=== PATIENT | male | born 1960 | race Hispanic/Latino ===

== ENCOUNTER 2016-07-02 22:27 | Observation (INO) | payer MEDICARE, OTHER ==
[2016-07-02 22:35] VITALS: BMI 38.0
--- NOTE | 2016-07-02 23:10 | ED PDOC ---
Arrival/HPI - General Chief Complaint: Male Genitourinary Time Seen by Provider: 07/02/16 22:58 Historian: Patient - History of Present Illness Narrative History of Present Illness (Text): 07/02/16 23:08 This 56 yo male with pmh HTN, presents to this ED c/o right testicular pain x 2 days. Patent denies fever, sick contact, std exposure, trauma, sob, cp, or urinary symptoms. Time/Duration: Other (2 days) Context: Home Past Medical History - Provider Review Nursing Documentation Reviewed: Yes - Infectious Disease Hx of Infectious Diseases: None - Cardiac Hx Hypertension: Yes - Pulmonary Other/Comment: Smoker - Psychiatric Hx Substance Use: No - Surgical History Hx Orthopedic Surgery: Yes (knee surgery) - Anesthesia Hx Anesthesia: Yes Hx Anesthesia Reactions: No Hx Malignant Hyperthermia: No Family/Social History - Physician Review Nursing Documentation Reviewed: Yes Family/Social History: No Known Family HX Smoking Status: Heavy Smoker > 10 Cigarettes Daily Hx Alcohol Use: No Hx Substance Use: No Allergies/Home Meds Allergies/Adverse Reactions: Allergies No Known Allergies Allergy (Verified 07/02/16 22:35) Review of Systems - Review of Systems Constitutional: Normal. absent: Fatigue, Weight Change, Fevers Eyes: Normal ENT: Normal Respiratory: Cough. absent: SOB Cardiovascular: Normal Gastrointestinal: Normal Genitourinary Male: Other (Right testicular pain, swelling). absent: Dysuria, Frequency, Hematuria Musculoskeletal: Normal Skin: Normal Neurological: Normal Endocrine: Normal Hemo/Lymphatic: Normal Psychiatric: Normal Physical Exam Vital Signs Temp Pulse Resp BP Pulse Ox 07/03/16 03:20 16 126/86 93 L 07/03/16 02:10 102 H 18 173/108 H 96 07/03/16 00:46 109 H 22 167/105 H 94 L 07/02/16 22:39 97.9 F 104 H 178/105 H 93 L Temperature: Afebrile Blood Pressure: Hypertensive Pulse: Tachycardic Respiratory Rate: Normal Appearance: Positive for: Well-Appearing, Non-Toxic, Uncomfortable Pain Distress: Mild Mental Status: Positive for: Alert and Oriented X 3 - Systems Exam Head: Present: Atraumatic, Normocephalic Pupils: Present: PERRL Extroacular Muscles: Present: EOMI Conjunctiva: Present: Normal Mouth: Present: Moist Mucous Membranes Neck: Present: Normal Range of Motion Respiratory/Chest: Present: Clear to Auscultation, Good Air Exchange. No: Respiratory Distress, Accessory Muscle Use Cardiovascular: Present: Regular Rate and Rhythm, Normal S1, S2. No: Murmurs Abdomen: Present: Normal Bowel Sounds. No: Tenderness, Distention, Peritoneal Signs Genitourinary Male: Present: Circumcised Penis, Testicle Tenderness, Erythema, Testicle Swelling. No: Lesions, Penile Discharge, Penile Swelling, Masses Back: Present: Normal Inspection. No: CVA Tenderness Upper Extremity: Present: Normal Inspection, Normal ROM, NORMAL PULSES, Neurovascularly Intact, Capillary Refill < 2s. No: Cyanosis, Edema Lower Extremity: Present: Normal Inspection, NORMAL PULSES, Normal ROM. No: Edema, CALF TENDERNESS Neurological: Present: GCS=15, CN II-XII Intact, Speech Normal, Motor Func Grossly Intact, Normal Sensory Function, Normal Cerebellar Funct, Memory Normal Skin: Present: Warm, Dry, Normal Color. No: Rashes Psychiatric: Present: Alert, Oriented x 3, Normal Insight, Normal Concentration Medical Decision Making ED Course and Treatment: 07/03/16 02:[address] Stover regarding patient c/o right testicular pain. U/S dx. right epididymoorchitis. He agrees with plan for observation. Re-evaluation Time: 02:12 Reassessment Condition: Re-examined, Improving,but remains with symptoms - Lab Interpretations Microbiology Results: Microbiology Results 07/02/16 22:46 Blood Blood Culture - Final NO GROWTH AFTER 5 DAYS 07/02/16 22:46 Blood Gram Stain - Final TEST NOT PERFORMED 07/02/16 23:30 Blood S.aureus & Coag-Neg Staph PNA FISH - Final 07/02/16 23:30 Blood Blood Culture - Final Coagulase Neg Staphylococcus 07/02/16 23:30 Blood Gram Stain - Final 07/03/16 01:19 Urine Urine Culture - Final Escherichia Coli Lab Results: 07/02/16 22:46 07/02/16 22:46 Lab Results 07/03/16 01:19: Urine Color Yellow, Urine Appearance Clear, Urine pH 7.5, Ur Specific [place] 1.010, Urine Protein Negative, Urine Glucose (UA) Negative, Urine Ketones 15 H, Urine Blood Negative, Urine Nitrate Positive H, Urine Bilirubin Negative, Urine Urobilinogen 4.0 H, Ur Leukocyte Esterase Negative, Urine RBC 0 - 2, Urine WBC 0 - 2, Ur Epithelial Cells 1 - 3, Urine Bacteria Many 07/02/16 23:30: pO2 75 H, VBG pH 7.42, VBG pCO2 45.0, VBG HCO3 29.2 H, VBG Total CO2 30.6 H, VBG O2 Sat (Calc) 97.6 H, VBG Base Excess 4.0 H, VBG Potassium 3.3 L, Glucose 126 H, Lactate 0.9, FiO2 21.0, Sodium 136.0, Chloride 104.0, Venous Blood Potassium 3.3 L 07/02/16 22:46: Sodium 135, Potassium 3.1 L, Chloride 99, Carbon Dioxide 26, Anion Gap 13, BUN 11, Creatinine 0.7, Est GFR ( Amer) > 60, Est GFR (Non- Af Amer) > 60, Random Glucose 130 H, Calcium 8.9, Phosphorus 2.1 L, Magnesium 1.9, Total Bilirubin 1.7 H, AST 31, ALT 40, Alkaline Phosphatase 71, Total Protein 7.3, Albumin 4.3, Globulin 3.0, Albumin/Globulin Ratio 1.4 07/02/16 22:46: PT 12.0 H, INR 1.11 H, APTT 29.2 07/02/16 22:46: WBC 12.0 H, RBC 4.67, Hgb 14.7, Hct 42.5, MCV 91.0, MCH 31.5, MCHC 34.6, RDW 12.8, Plt Count 144, MPV 9.8, Gran % 84.5 H, Lymph % (Auto) 6.7 L , [place] % (Auto) 8.5 H, Eos % (Auto) 0.1 L, Baso % (Auto) 0.2, Gran # 10.15 H, Lymph # 0.8 L, [place] # 1.0 H, Eos # 0.0, Baso # 0.02 I have reviewed the lab results: Yes Interpretation: Abnormal lab values - RAD Interpretation Narrative RAD Interpretations (Text): 07/03/16 01:37 [facility] FINDINGS: Right testicle: Measures 4.0 x 3.2 x 2.6 cm. Appears hyperemic compared with the left testicle, and is mildly inhomogeneous in echogenicity. Findings are suspicious for mild right orchitis. Flow seen in the right testicle on color and Doppler imaging, with no evidence of torsion. Right epididymis: Body and tail appear mildly enlarged and inhomogeneous in echogenicity, and demonstrate hyperemia on color imaging. Findings are most likely due to right epididymitis. Head of the epididymis is normal in size, measuring 9 x 8 mm. Left testicle: Within normal limits in appearance. Measures 4.2 x 2.9 x 2.2 cm. Flow seen in the left testicle on color and Doppler imaging, with no evidence of torsion. Left epididymis: Within normal limits in appearance. Head measures 10 x 8 mm. Hydrocoele: Small to moderate right hydrocele is seen. This appears complex/ multiseptate. Small left hydrocele noted, which appear simple in nature. Other findings: Thickening of the right scrotal soft tissues, suspicious for cellulitis. IMPRESSION: Findings suspicious for right epididymoorchitis. Moderate right hydrocele, which appears complex/multiseptate. Cannot rule out a pyocele. Recommend clinical correlation. Findings which could be due to right scrotal cellulitis. Small left hydrocele. See above for remaining findings. No evidence of testicular torsion.. Thank you for allowing us to participate in the care of your patient. Dictated and Authenticated by: Sonia Morales MD 07/03/2016 12:18 AM Eastern Time ([place] & [place]) Radiology Orders: 07/02/16 TESTES DUPLEX COMPLETE [US] Stat 07/02/16 23:03 CHEST PORTABLE [RAD] Stat 07/02/16 23:07 ABD & PELVIS IV CONTRAST ONLY [CT] Stat - EKG Interpretation Interpreted by ED Physician: Yes (sinus tachycardia @ [address] chages. Normal interval.) Type: 12 lead EKG Comparison: No previous EKG avail. - Medication Orders Current Medication Orders: Discontinued Medications Docusate Sodium (Colace) 100 mg PO DAILY GARRETT Last Admin: 07/05/16 09:53 Dose: 100 mg Hydralazine HCl (Apresoline) 10 mg IVP Q6 PRN PRN Reason: Systolic Blood Pressure Last Admin: 07/04/16 17:04 Dose: 10 mg Hydromorphone HCl (Dilaudid) 0.5 mg IVP Q3H PRN PRN Reason: Pain, moderate (4-7) Hydromorphone HCl (Dilaudid) 1 mg IVP Q3H PRN PRN Reason: Pain, severe (8-10) Last Admin: 07/04/16 21:28 Dose: 1 mg Vancomycin HCl (Vancomycin 1gm) 1 gm in 250 mls @ 167 mls/hr IVPB STAT STA PRN Reason: Protocol Stop: 07/03/16 00:42 Last Admin: 07/03/16 00:29 Dose: 167 mls/hr Sodium Chloride (Sodium Chloride 0.9%) 500 mls @ 999 mls/hr IV .Q31M STA Stop: 07/02/16 23:43 Last Admin: 07/03/16 00:30 Dose: 999 mls/hr Piperacillin Sod/Tazobactam Sod (Zosyn 3.375 In Ns 100ml) 100 mls @ 200 mls/hr IVPB STAT STA PRN Reason: Protocol Stop: 07/03/16 02:29 Last Admin: 07/03/16 02:13 Dose: 200 mls/hr Doxycycline Hyclate 100 mg/ (Sodium Chloride) 100 mls @ 100 mls/hr IVPB Q12 GARRETT PRN Reason: Protocol Last Admin: 07/05/16 09:55 Dose: 100 mls/hr Ceftriaxone Sodium (Rocephin 1 Gram Ivpb) 1 gm in 100 mls @ 100 mls/hr IVPB DAILY GARRETT PRN Reason: Protocol Last Admin: 07/05/16 09:54 Dose: 100 mls/hr Ibuprofen (Motrin Tab) 600 mg PO Q6H [facility] Last Admin: 07/05/16 12:51 Dose: Not Given Non-Admin Reason: Patient Refused Iohexol (Omnipaque 350 100 Ml) Confirm Administered Dose 350 mg .ROUTE .STK-MED ONE Stop: 07/03/16 00:03 Metoprolol Tartrate (Lopressor) 25 mg PO DAILY [facility] Last Admin: 07/04/16 09:05 Dose: 25 mg Metoprolol Tartrate (Lopressor) 25 mg PO BID [facility] Last Admin: 07/05/16 17:13 Dose: 25 mg Morphine Sulfate (Morphine) 2 mg IVP STAT STA Stop: 07/02/16 23:14 Last Admin: 07/02/16 23:33 Dose: 2 mg Re-Assess: MATTI Pain Assessment Document 07/03/16 00:33 SS (Rec: 07/03/16 01:22 SS [id number]) Pain Reassessment Is this a pain reassessment? Yes Sleep Is patient sleeping during reassessment? Yes Morphine Sulfate (Morphine) 4 mg IVP STAT STA Stop: 07/03/16 02:51 Last Admin: 07/03/16 03:03 Dose: 4 mg Nicotine (Nicoderm Cq) 1 patch TD DAILY [facility] Last Admin: 07/05/16 09:54 Dose: 1 patch Ondansetron HCl (Zofran Inj) 4 mg IVP Q4H PRN PRN Reason: Nausea/Vomiting Pantoprazole Sodium (Protonix Inj) 40 mg IVP DAILY [facility] Last Admin: 07/03/16 09:19 Dose: 40 mg Pantoprazole Sodium (Protonix Ec Tab) 40 mg PO ACB [facility] Last Admin: 07/05/16 09:53 Dose: 40 mg Potassium Chloride (K-Dur 20 Meq Er Tab) 60 meq PO STAT STA Stop: 07/03/16 02:12 Last Admin: 07/03/16 02:30 Dose: 60 meq Potassium Chloride (K-Dur 20 Meq Er Tab) 40 meq PO ONCE ONE Stop: 07/05/16 08:00 Last Admin: 07/05/16 09:53 Dose: 40 meq Disposition/Present on Arrival - Present on Arrival Any Indicators Present on Arrival: No History of DVT/PE: No History of Uncontrolled Diabetes: No Urinary Catheter: No History of Decub. Ulcer: No History Surgical Site Infection Following: None - Disposition Have Diagnosis and Disposition been Completed?: Yes Diagnosis: Epididymoorchitis, Cellulitis of scrotum, Cough Disposition: HOSPITALIZED Disposition Time: 02:14 Patient Plan: Observation Condition: STABLE
[2016-07-02] MEDS ORDERED: Vancomycin 1gm in NS 250ml 1 GM/250 ML BAG IVPB STA (23:13)
[2016-07-02] MEDS ORDERED: Sodium Chloride 0.9% 500 ML IV STA (23:13)
[2016-07-02] MEDS ORDERED: Morphine 2 mg/ml ISec IVP STA (23:13)
[2016-07-02 23:27] LABS: ADD MANUAL DIFF? NO
[2016-07-02 23:31] LABS: BASO # 0.02 K/mm3 (0.0-2.0); BASO % 0.2 % (0.0-3.0); EOS % 0.1 % (1.5-5.0); GRAN # 10.15 (1.4-6.5); GRAN % 84.5 % (50.0-68.0); HEMATOCRIT 42.5 % (42.0-52.0); LYMPH # 0.8 (1.2-3.4); LYMPH % 6.7 % (22.0-35.0); MEAN CORPUSCULAR HEMOGLOBIN 31.5 pg (25.0-35.0); MEAN CORPUSCULAR HGB CONC 34.6 g/dl (31.0-37.0); MEAN PLATELET VOLUME 9.8 fl (7.0-11.0); MONO % 8.5 % (1.0-6.0); PLATELET COUNT 144 10^3/uL (120.0-450.0); RED CELL DISTRIBUTION WIDTH 12.8 % (11.5-14.5)
[2016-07-02 23:44] LABS: ALB/GLOB RATIO 1.4 (1.1-1.8); ALKALINE PHOSPHATASE 71 U/L (38-133); ALT/SGPT 40 U/L (7-56); AST/SGOT 31 U/L (15-59); BILIRUBIN,TOTAL 1.7 mg/dL (0.2-1.3); BLOOD UREA NITROGEN 11 mg/dL (7-21); CALCIUM 8.9 mg/dL (8.4-10.5); CARBON DIOXIDE 26 mmol/L (21-33); CHLORIDE 99 mmol/L (98-107); GFR AFRICAN-AMERICAN > 60; GLUCOSE,RANDOM 130 mg/dL (70-110); MAGNESIUM 1.9 mg/dL (1.7-2.2); PHOSPHOROUS 2.1 mg/dL (2.5-4.5); POTASSIUM 3.1 mmol/L (3.6-5.0); SODIUM 135 mmol/L (132-148); TOTAL PROTEIN 7.3 g/dL (5.8-8.3)
[2016-07-02 23:55] LABS: VENOUS BLOOD PH 7.42 (7.32-7.43)
[2016-07-03] MEDS ORDERED: Iohexol 350 MG/100 ML VIAL ONE (00:02)
[2016-07-03 00:05] LABS: INR 1.11 (0.93-1.08); PARTIAL THROMBOPLASTIN TIME 29.2 Seconds (23.7-30.8)
--- NOTE | 2016-07-03 00:18 | US ---
EXAM: US Scrotum CLINICAL HISTORY: 56 years old, male; Pain; Scrotum pain; Patient HX: Rt side swelling and pain; Additional info: Right testicular pain swelling TECHNIQUE: Real-time ultrasound of the scrotum with color Doppler and image documentation. EXAM DATE/TIME: 07/02/2016 11:06 PM COMPARISON: No relevant prior studies available. FINDINGS: Right testicle: Measures 4.0 x 3.2 x 2.6 cm. Appears hyperemic compared with the left testicle, and is mildly inhomogeneous in echogenicity. Findings are suspicious for mild right orchitis. Flow seen in the right testicle on color and Doppler imaging, with no evidence of torsion. Right epididymis: Body and tail appear mildly enlarged and inhomogeneous in echogenicity, and demonstrate hyperemia on color imaging. Findings are most likely due to right epididymitis. Head of the epididymis is normal in size, measuring 9 x 8 mm. Left testicle: Within normal limits in appearance. Measures 4.2 x 2.9 x 2.2 cm. Flow seen in the left testicle on color and Doppler imaging, with no evidence of torsion. Left epididymis: Within normal limits in appearance. Head measures 10 x 8 mm. Hydrocoele: Small to moderate right hydrocele is seen. This appears complex/multiseptate. Small left hydrocele noted, which appear simple in nature. Other findings: Thickening of the right scrotal soft tissues, suspicious for cellulitis. IMPRESSION: Findings suspicious for right epididymoorchitis. Moderate right hydrocele, which appears complex/multiseptate. Cannot rule out a pyocele. Recommend clinical correlation. Findings which could be due to right scrotal cellulitis. Small left hydrocele. See above for remaining findings. No evidence of testicular torsion..
[2016-07-03 01:33] LABS: PH,URINE 7.5 (4.7-8.0); URINE BILIRUBIN NEGATIVE (NEGATIVE); URINE BLOOD NEGATIVE (NEGATIVE); URINE GLUCOSE (UA) NEGATIVE (NEGATIVE); URINE KETONE 15 mg/dL (NEGATIVE); URINE LEUKOCYTE ESTERASE NEGATIVE Leu/uL (NEGATIVE); URINE PROTEIN NEGATIVE mg/dL (<30 mg/dL)
[2016-07-03 01:40] LABS: URINE APPEARANCE CLEAR (CLEAR); URINE COLOR YELLOW (YELLOW)
[2016-07-03] MEDS ORDERED: Piperacillin/Tazobact 3.375 gm 100 ML IVPB STA (02:00)
[2016-07-03] MEDS ORDERED: Potassium Chloride 20 mEq ER Tab PO STA (02:11)
[2016-07-03 02:40] LABS: URINE BACTERIA MANY (NEG); URINE RBC 0 - 2 /hpf (0-2); URINE WBC 0 - 2 /hpf (0-6)
[2016-07-03] MEDS ORDERED: Morphine 4 mg/ml ISec IVP STA (02:50)
[2016-07-03] MEDS ORDERED: HYDROmorphone 0.5 mg/0.5 ml ISec IVP PRN (03:18)
--- NOTE | 2016-07-03 03:30 | CP.PCM.HP ---
History of Present Illness - History of Present Illness History of Present Illness: 56 y/o M with PMH of HTN presents for a 3 day hx of right scrotal pain. Pt says the pain began gradually and began to get worse over the course of 3 days. Pt also mentions that during this time, the right side of his scrotum also became more erythematous and edematous. Pain is rated a 10/10 and is characterized as sharp and burning. Pt did not take any medication at home for his pain. Pt has never had a pain like this before. Pt does note pus-like discharge from his penis in addition to occasional blood noted in his urine. Pt denies any new sexual encounters or any hx of sexually transmitted diseases. Denies CP, SOB, N/ V/D, fevers, chills, headaches. PMH: HTN Surgical Hx: Right Knee surgery for torn ligament Family Hx: Cancer, unknown as to which type Social Hx: 1 ppd x 30 years, occasional alcohol use. Denies illicit drug use Allergies: NKDA Medication: Metoprolol Present on Admission - Present on Admission Any Indicators Present on Admission: No Review of Systems - Constitutional Constitutional: absent: Chills, Fatigue, Fever - EENT Eyes: absent: Blurred Vision, Change in Vision Nose/Mouth/Throat: absent: Nasal Congestion, Nasal Discharge - Cardiovascular Cardiovascular: absent: Chest Pain, Irregular Heart Rhythm - Respiratory Respiratory: absent: Cough, Dyspnea - Gastrointestinal Gastrointestinal: absent: Abdominal Pain, Diarrhea, Vomiting - Genitourinary Genitourinary: Dysuria, Hematuria - Reproductive: Male Reproductive:Male: Penile Discharge - Integumentary Integumentary: absent: New Lesions, Rash - Neurological Neurological: absent: Numbness, Syncope, Tingling - Hematologic/Lymphatic Hematologic: absent: Easy Bleeding, Easy Bruising Past Patient History - Infectious Disease Hx of Infectious Diseases: None - Past Social History Smoking Status: Heavy Smoker > 10 Cigarettes Daily - CARDIAC Hx Hypertension: Yes - PULMONARY Other/Comment: Smoker - PSYCHIATRIC Hx Substance Use: No - SURGICAL HISTORY Hx Orthopedic Surgery: Yes (knee surgery) - ANESTHESIA Hx Anesthesia: Yes Hx Anesthesia Reactions: No Hx Malignant Hyperthermia: No Meds Allergies/Adverse Reactions: Allergies Allergy/AdvReac Type Severity Reaction Status Date / Time No Known Allergies Allergy Verified 07/02/16 22:35 Physical Exam - Constitutional Appears: Non-toxic, No Acute Distress - Head Exam Head Exam: ATRAUMATIC, NORMAL INSPECTION, NORMOCEPHALIC - Eye Exam Eye Exam: EOMI, Normal appearance - ENT Exam ENT Exam: Mucous Membranes Moist, Normal Exam - Neck Exam Neck exam: Positive for: Normal Inspection. Negative for: Lymphadenopathy - Respiratory Exam Respiratory Exam: Clear to Auscultation Bilateral, NORMAL BREATHING PATTERN. absent: Rhonchi, Wheezes - Cardiovascular Exam Cardiovascular Exam: RRR, +S1, +S2 - GI/Abdominal Exam GI & Abdominal Exam: Normal Bowel Sounds, Soft. absent: Tenderness - Exam Exam: Scrotal Swelling, Testicular Tenderness (Right testicle tender to palpation). absent: Circumcision, Uretheral Discharge Additional comments: Scrotal edema and erythema present. Cremasteric reflex present b/l - Extremities Exam Extremities exam: Positive for: normal inspection. Negative for: calf tenderness, pedal edema - Neurological Exam Neurological exam: Alert, CN II-XII Intact, Oriented x3 - Psychiatric Exam Psychiatric exam: Normal Affect, Normal Mood - Skin Skin Exam: Intact, Warm Results - Vital Signs Recent Vital Signs: Last Vital Signs Temp 97.9 F 07/02/16 22:39 Pulse 102 H 07/03/16 02:10 Resp 16 07/03/16 03:20 BP 126/86 07/03/16 03:20 Pulse Ox 93 L 07/03/16 03:20 - Labs Result Diagrams: 07/02/16 22:46 07/02/16 22:46 Labs: Laboratory Results - last 24 hr 07/02/16 07/02/16 07/02/16 22:46 22:46 22:46 WBC 12.0 H RBC 4.67 Hgb 14.7 Hct 42.5 MCV 91.0 MCH 31.5 MCHC 34.6 RDW 12.8 Plt Count 144 MPV 9.8 Gran % 84.5 H Lymph % (Auto) 6.7 L [place] % (Auto) 8.5 H Eos % (Auto) 0.1 L Baso % (Auto) 0.2 Gran # 10.15 H Lymph # 0.8 L [place] # 1.0 H Eos # 0.0 Baso # 0.02 PT 12.0 H INR 1.11 H APTT 29.2 pO2 VBG pH VBG pCO2 VBG HCO3 VBG Total CO2 VBG O2 Sat (Calc) VBG Base Excess VBG Potassium Glucose Lactate FiO2 Sodium 135 Potassium 3.1 L Chloride 99 Carbon Dioxide 26 Anion Gap 13 BUN 11 Creatinine 0.7 Est GFR ( Amer) > 60 Est GFR (Non-Af Amer) > 60 Random Glucose 130 H Calcium 8.9 Phosphorus 2.1 L Magnesium 1.9 Total Bilirubin 1.7 H AST 31 ALT 40 Alkaline Phosphatase 71 Total Protein 7.3 Albumin 4.3 Globulin 3.0 Albumin/Globulin Ratio 1.4 Venous Blood Potassium Urine Color Urine Appearance Urine pH Ur Specific [place] Urine Protein Urine Glucose (UA) Urine Ketones Urine Blood Urine Nitrate Urine Bilirubin Urine Urobilinogen Ur Leukocyte Esterase Urine RBC Urine WBC Ur Epithelial Cells Urine Bacteria 07/02/16 07/03/16 23:30 01:19 WBC RBC Hgb Hct MCV MCH MCHC RDW Plt Count MPV Gran % Lymph % (Auto) [place] % (Auto) Eos % (Auto) Baso % (Auto) Gran # Lymph # [place] # Eos # Baso # PT INR APTT pO2 75 H VBG pH 7.42 VBG pCO2 45.0 VBG HCO3 29.2 H VBG Total CO2 30.6 H VBG O2 Sat (Calc) 97.6 H VBG Base Excess 4.0 H VBG Potassium 3.3 L Glucose 126 H Lactate 0.9 FiO2 21.0 Sodium 136.0 Potassium Chloride 104.0 Carbon Dioxide Anion Gap BUN Creatinine Est GFR ( Amer) Est GFR (Non-Af Amer) Random Glucose Calcium Phosphorus Magnesium Total Bilirubin AST ALT Alkaline Phosphatase Total Protein Albumin Globulin Albumin/Globulin Ratio Venous Blood Potassium 3.3 L Urine Color Yellow Urine Appearance Clear Urine pH 7.5 Ur Specific [place] 1.010 Urine Protein Negative Urine Glucose (UA) Negative Urine Ketones 15 H Urine Blood Negative Urine Nitrate Positive H Urine Bilirubin Negative Urine Urobilinogen 4.0 H Ur Leukocyte Esterase Negative Urine RBC 0 - 2 Urine WBC 0 - 2 Ur Epithelial Cells 1 - 3 Urine Bacteria Many Assessment & Plan - Assessment and Plan (Free Text) Plan: 56 y/o M with PMH of HTN presents with scrotal cellulitis and right epididymoorchitis. Pt received US which showed right epididymoorchitis with hydrocele along with scrotal cellulitis and no evidence of testicular torsion. Abdomen/pelvis CT scan pending. Pt will be started on abx and ID consulted. 1. Scrotal cellulitis and epididymoorchitis Levaquin and Doxycycline Check for GC/Chlamydia and RPR Dilaudid for pain control ID consulted, Dr. Cuevas 2. HTN Continue Lopressor 3. Tobacco abuse Cessation discussed Consider Nicotine patch 4. PPX Protonix Erendira SCD Seen, reviewed, and discussed with attending Koki, PGY-1
[2016-07-03] MEDS: HYDROmorphone 1 mg/ml ISec IVP PRN ×3 (04:12→20:46)
[2016-07-03 07:51] LABS: HEMATOCRIT 41.6 % (42.0-52.0); MEAN CELL VOLUME 89.5 fL (80.0-105.0); MEAN CORPUSCULAR HEMOGLOBIN 31.6 pg (25.0-35.0); MEAN CORPUSCULAR HGB CONC 35.3 g/dl (31.0-37.0); MEAN PLATELET VOLUME 9.6 fl (7.0-11.0); RED CELL DISTRIBUTION WIDTH 12.6 % (11.5-14.5); WHITE BLOOD COUNT 12.2 10^3/ul (4.5-11.0)
[2016-07-03 08:03] LABS: ALB/GLOB RATIO 1.3 (1.1-1.8); ALKALINE PHOSPHATASE 69 U/L (38-133); ALT/SGPT 43 U/L (7-56); AST/SGOT 30 U/L (15-59); BLOOD UREA NITROGEN 8 mg/dL (7-21); CALCIUM 8.8 mg/dL (8.4-10.5); CARBON DIOXIDE 29 mmol/L (21-33); CHLORIDE 101 mmol/L (98-107); GFR AFRICAN-AMERICAN > 60; GLUCOSE,RANDOM 114 mg/dL (70-110); POTASSIUM 3.6 mmol/L (3.6-5.0); SODIUM 137 mmol/L (132-148); TOTAL PROTEIN 6.9 g/dL (5.8-8.3)
[2016-07-03 08:07] VITALS: RESP 20
[2016-07-03] MEDS: cefTRIAXone 1 gm 1 GM/100 ML BAG IVPB SCH (09:16)
[2016-07-03] MEDS ORDERED: levoFLOXacin 750 mg in D5W 150 ML BAG IVPB SCH (10:00)
--- NOTE | 2016-07-03 10:58 | CT ---
PROCEDURE: CT Abdomen and Pelvis with contrast HISTORY: right testicualr pain/swelling r/o Talita gangre COMPARISON: None. TECHNIQUE: Contrast dose: 100 mL Omnipaque 350 Radiation dose: Total exam DLP = 1313.28 mGy-cm. This CT exam was performed using one or more of the following dose reduction techniques: Automated exposure control, adjustment of the mA and/or kV according to patient size, and/or use of iterative reconstruction technique. FINDINGS: Please note that examination is limited for evaluation of the stated diagnosis. Examination was not continued through the perineum and scrotum. LOWER THORAX: Minimal bilateral dependent atelectasis in lower lobes. LIVER: Normal size and contour. Diffuse diminished attenuation consistent with fatty infiltration. No mass. No biliary dilatation. GALLBLADDER AND BILE DUCTS: Unremarkable. PANCREAS: Unremarkable. No gross lesion or ductal dilatation. SPLEEN: Unremarkable. ADRENALS: Unremarkable. No mass. KIDNEYS AND URETERS: Unremarkable. No hydronephrosis. No solid mass. VASCULATURE: Unremarkable. No aortic aneurysm. BOWEL: Unremarkable. No obstruction. No gross mural thickening. APPENDIX: Normal appendix. PERITONEUM: Unremarkable. No free fluid. No free air. LYMPH NODES: Unremarkable. No enlarged lymph nodes. BLADDER: Unremarkable. REPRODUCTIVE: Normal prostate BONES: No acute fracture. OTHER FINDINGS: None. IMPRESSION: Fatty liver. Otherwise unremarkable examination. Note examination is limited due to the failure to continue scan through perineum and scrotum for evaluation of primary stated diagnosis. Preliminary interpretation of this examination was reported by [employer] at 3:20 a.m. on 07/03/2016. There is concurrence of this report with the preliminary interpretation.
--- NOTE | 2016-07-03 11:48 | CP.PCM.CON ---
History of Present Illness - History of Present Illness History of Present Illness: 56 year old male with PMH of HTN, S/P right knee surgery, obesity with BMI 38, came in complaining of pain and swelling of his right scrotum for past 3-4 days. He denies discharge from the area, denies specific trauma to the area. The patient denies being sexually active in the past 3 months, denies having history of sexually transmitted illness. He does complain of pus-like material coming from his penis on occasion, but no blood. He denies fever or chills, no nausea or vomiting, no chest pain, no SOB, no cough or rhinorrhea, no headache or dizziness, no diarrhea. In the ED, ultrasound shows probable epidydimo- orchitis on the right. Infectious diseases consult is requested to further evaluate and manage. Review of Systems - Review of Systems All systems: reviewed and no additional remarkable complaints except (as per HPI ) Past Patient History - Infectious Disease Hx of Infectious Diseases: None - Past Social History Smoking Status: Heavy Smoker > 10 Cigarettes Daily - CARDIAC Hx Hypertension: Yes - PULMONARY Other/Comment: Smoker - MUSCULOSKELETAL/RHEUMATOLOGICAL Hx Falls: No - PSYCHIATRIC Hx Substance Use: No - SURGICAL HISTORY Hx Orthopedic Surgery: Yes (knee surgery) - ANESTHESIA Hx Anesthesia: Yes Hx Anesthesia Reactions: No Hx Malignant Hyperthermia: No Meds Allergies/Adverse Reactions: Allergies Allergy/AdvReac Type Severity Reaction Status Date / Time No Known Allergies Allergy Verified 07/02/16 22:35 - Medications Medications: Current Medications Docusate Sodium (Colace) 100 mg PO DAILY [facility] Hydromorphone HCl (Dilaudid) 0.5 mg IVP Q3H PRN PRN Reason: Pain, moderate (4-7) Hydromorphone HCl (Dilaudid) 1 mg IVP Q3H PRN PRN Reason: Pain, severe (8-10) Last Admin: 07/03/16 04:12 Dose: 1 mg Doxycycline Hyclate 100 mg/ (Sodium Chloride) 100 mls @ 100 mls/hr IVPB Q12 [facility] PRN Reason: Protocol Levofloxacin/Dextrose (Levaquin 750mg) 750 mg IVPB DAILY [facility] Metoprolol Tartrate (Lopressor) 25 mg PO DAILY [facility] Nicotine (Nicoderm Cq) 1 patch TD DAILY [facility] Ondansetron HCl (Zofran Inj) 4 mg IVP Q4H PRN PRN Reason: Nausea/Vomiting Pantoprazole Sodium (Protonix Inj) 40 mg IVP DAILY [facility] Physical Exam - Constitutional Appears: Non-toxic, No Acute Distress - Head Exam Head Exam: NORMAL INSPECTION - ENT Exam ENT Exam: Mucous Membranes Moist - Neck Exam Neck exam: Negative for: Lymphadenopathy, Meningismus - Respiratory Exam Respiratory Exam: Decreased Breath Sounds - Cardiovascular Exam Cardiovascular Exam: +S1, +S2 - GI/Abdominal Exam GI & Abdominal Exam: Soft. absent: Tenderness - Exam Exam: Scrotal Swelling (right), Testicular Tenderness (right) Results - Vital Signs Recent Vital Signs: Last Vital Signs Temp 99 F 07/03/16 08:06 Pulse 95 H 07/03/16 08:06 Resp 20 07/03/16 08:06 BP 137/78 07/03/16 08:06 Pulse Ox 94 L 07/03/16 08:06 - Labs Result Diagrams: 07/03/16 07:45 07/03/16 07:45 Labs: Laboratory Results - last 24 hr 07/03/16 07/03/16 07:45 07:45 WBC 12.2 H RBC 4.65 Hgb 14.7 Hct 41.6 L MCV 89.5 MCH 31.6 MCHC 35.3 RDW 12.6 Plt Count 145 MPV 9.6 Sodium 137 Potassium 3.6 Chloride 101 Carbon Dioxide 29 Anion Gap 11 BUN 8 Creatinine 0.6 Est GFR ( Amer) > 60 Est GFR (Non-Af Amer) > 60 Random Glucose 114 H Calcium 8.8 Total Bilirubin 2.0 H AST 30 ALT 43 Alkaline Phosphatase 69 Total Protein 6.9 Albumin 3.9 Globulin 3.0 Albumin/Globulin Ratio 1.3 Assessment & Plan - Assessment and Plan (Free Text) Plan: Assessment Sepsis due to right epididymo-orchitis R/O sexually transmitted illness HTN S/P right knee surgery obesity with BMI 38 Plan Started patient on Rocephin and Doxycycline pending blood cx, penile discharge/ urine cx, urine NAAT for gonorrhea and chlamydia will follow up Urology evaluation Will monitor clinically
--- NOTE | 2016-07-03 12:56 | CARD ---
APPROVED REPORT EKG Measurement Heart [id number] <Conclusion> Sinus tachycardia Otherwise normal ECG
--- NOTE | 2016-07-03 14:33 | RAD ---
HISTORY: Sepsis Patient COMPARISON: No prior. FINDINGS: LUNGS: No active pulmonary disease. PLEURA: No significant pleural effusion identified, no pneumothorax apparent. CARDIOVASCULAR: Normal. OSSEOUS STRUCTURES: No significant abnormalities. VISUALIZED UPPER ABDOMEN: Normal. OTHER FINDINGS: None. IMPRESSION: No active disease.
[2016-07-04] MEDS: HYDROmorphone 1 mg/ml ISec IVP PRN ×4 (01:34→21:28)
--- NOTE | 2016-07-04 06:12 | PCM.URO ---
Urology Progress Note - Objective Lab Results Last 24 Hours: Laboratory Results - last 24 hr 07/03/16 07/03/16 07/03/16 07:45 07:45 07:45 WBC 12.2 H RBC 4.65 Hgb 14.7 Hct 41.6 L MCV 89.5 MCH 31.6 MCHC 35.3 RDW 12.6 Plt Count 145 MPV 9.6 Sodium 137 Potassium 3.6 Chloride 101 Carbon Dioxide 29 Anion Gap 11 BUN 8 Creatinine 0.6 Est GFR ( Amer) > 60 Est GFR (Non-Af Amer) > 60 Random Glucose 114 H Calcium 8.8 Total Bilirubin 2.0 H AST 30 ALT 43 Alkaline Phosphatase 69 Total Protein 6.9 Albumin 3.9 Globulin 3.0 Albumin/Globulin Ratio 1.3 RPR Nonreactive Intake & Output: Intake & Output 07/03/16 07/03/16 07/04/16 06:59 18:59 06:59 Intake Total 960 Balance 960 Intake: Oral 960 Other: Voiding Method Urinal # Bowel Movements 1 Vital Signs: Vital Signs - 24 hr 07/03/16 07/03/16 07/03/16 08:06 09:18 17:08 Temperature 99 F 99 F Pulse Rate 95 H 94 H Respiratory 20 20 Rate Blood Pressure 137/78 137/78 154/98 H O2 Sat by Pulse 94 L 98 Oximetry
[2016-07-04 07:14] LABS: HEMATOCRIT 43.9 % (42.0-52.0); MEAN CELL VOLUME 87.8 fL (80.0-105.0); MEAN CORPUSCULAR HEMOGLOBIN 31.8 pg (25.0-35.0); MEAN CORPUSCULAR HGB CONC 36.2 g/dl (31.0-37.0); MEAN PLATELET VOLUME 9.7 fl (7.0-11.0); RED CELL DISTRIBUTION WIDTH 12.5 % (11.5-14.5); WHITE BLOOD COUNT 11.9 10^3/ul (4.5-11.0)
[2016-07-04 07:26] LABS: ALB/GLOB RATIO 1.2 (1.1-1.8); ALKALINE PHOSPHATASE 75 U/L (38-133); ALT/SGPT 39 U/L (7-56); AST/SGOT 25 U/L (15-59); BILIRUBIN,TOTAL 1.1 mg/dL (0.2-1.3); BLOOD UREA NITROGEN 12 mg/dL (7-21); CALCIUM 9.2 mg/dL (8.4-10.5); CARBON DIOXIDE 26 mmol/L (21-33); CHLORIDE 103 mmol/L (98-107); GFR AFRICAN-AMERICAN > 60; GLUCOSE,RANDOM 110 mg/dL (70-110); POTASSIUM 3.6 mmol/L (3.6-5.0); SODIUM 140 mmol/L (132-148); TOTAL PROTEIN 7.1 g/dL (5.8-8.3)
[2016-07-04] MEDS: Pantoprazole 40 mg EC Tab PO SCH (08:17)
[2016-07-04] MEDS: cefTRIAXone 1 gm 1 GM/100 ML BAG IVPB SCH (09:06)
--- NOTE | 2016-07-04 13:48 | CP.PCM.PN ---
<EdelmiraLuis jacinto - Last Filed: 07/04/16 13:44> Subjective - Date & Time of Evaluation Date of Evaluation: 07/04/16 Time of Evaluation: 09:30 - Subjective Subjective: Medicine Progress note. Dr. Bryant Pt seen and examined at bedside. No acute events overnight. Patient states that he was evaluated by Urology who wanted the patient to keep the scrotum elevated with a rolled towel. States mild improvement in scrotal swelling. Still with pain. No N/V/D. No Abd pain. No F/C. No CP/SOB. no new complaints. Objective - Vital Signs/Intake and Output Vital Signs (last 24 hours): Temp Pulse Resp BP Pulse Ox 98.2 F 85 20 161/97 H 92 L 07/04/16 08:25 07/04/16 08:25 07/04/16 08:25 07/04/16 09:05 07/04/16 08:25 - Medications Medications: Current Medications Docusate Sodium (Colace) 100 mg PO DAILY [facility] Last Admin: 07/04/16 09:05 Dose: 100 mg Hydromorphone HCl (Dilaudid) 0.5 mg IVP Q3H PRN PRN Reason: Pain, moderate (4-7) Hydromorphone HCl (Dilaudid) 1 mg IVP Q3H PRN PRN Reason: Pain, severe (8-10) Last Admin: 07/04/16 09:06 Dose: 1 mg Doxycycline Hyclate 100 mg/ (Sodium Chloride) 100 mls @ 100 mls/hr IVPB Q12 [facility] PRN Reason: Protocol Last Admin: 07/04/16 10:11 Dose: 100 mls/hr Ceftriaxone Sodium (Rocephin 1 Gram Ivpb) 1 gm in 100 mls @ 100 mls/hr IVPB DAILY [facility] PRN Reason: Protocol Last Admin: 07/04/16 09:06 Dose: 100 mls/hr Ibuprofen (Motrin Tab) 600 mg PO Q6H [facility] Last Admin: 07/04/16 12:15 Dose: 600 mg Metoprolol Tartrate (Lopressor) 25 mg PO DAILY [facility] Last Admin: 07/04/16 09:05 Dose: 25 mg Nicotine (Nicoderm Cq) 1 patch TD DAILY [facility] Last Admin: 07/04/16 09:05 Dose: 1 patch Ondansetron HCl (Zofran Inj) 4 mg IVP Q4H PRN PRN Reason: Nausea/Vomiting Pantoprazole Sodium (Protonix Ec Tab) 40 mg PO ACB [facility] Last Admin: 07/04/16 08:17 Dose: 40 mg - Labs Labs: 07/04/16 07:00 07/04/16 07:00 PT 12.0 Seconds (9.9-11.8) H 07/02/16 22:46 INR 1.11 (0.93-1.08) H 07/02/16 22:46 APTT 29.2 Seconds (23.7-30.8) 07/02/16 22:46 - Constitutional Appears: Well, No Acute Distress - Head Exam Head Exam: ATRAUMATIC, NORMAL INSPECTION, NORMOCEPHALIC - Eye Exam Eye Exam: EOMI, Normal appearance, PERRL. absent: Scleral icterus - ENT Exam ENT Exam: Mucous Membranes Moist - Neck Exam Neck Exam: Full ROM - Respiratory Exam Respiratory Exam: Clear to Ausculation Bilateral, NORMAL BREATHING PATTERN. absent: Chest Wall Tenderness, Decreased Breath Sounds, Rales, Wheezes, Respiratory Distress - Cardiovascular Exam Cardiovascular Exam: RRR, +S1, +S2. absent: JVD - GI/Abdominal Exam GI & Abdominal Exam: Soft, Normal Bowel Sounds. absent: Firm, Guarding, Rigid, Tenderness, Mass, Rebound - Exam Additional comments: scrotal swelling. erythema. Tender to palpation. No discharge. No induration - Extremities Exam Extremities Exam: Normal Inspection - Neurological Exam Neurological Exam: Alert, Awake, Normal Gait - Psychiatric Exam Psychiatric exam: Normal Affect, Normal Mood - Skin Skin Exam: Dry, Intact Assessment and Plan - Assessment and Plan (Free Text) Assessment: 56yo M with PMHx of HTN here for evaluation of scrotal swelling 1. Epididymo-orchitis Afebrile mild improvement in leukocytosis Doxycycline Rocephin Urine Cx - gram negative moises Blood Cx - Gram Pos cocci in clusters in one of two sets Scrotal elevation Urology consulted, Dr. Oliveira, appreciate recs Motrin 600mg PO prn ID consulted, Dr. Gabriel, appreciate recs 2. hx of HTN Metoprolol 25mg PO Daily continue to monitor 3. Tobacco abuse cessation counseling Nicotine patch 4. PPx Protonix SCDs Discussed case with Dr. Annette Hickey PGY1 <Tunde Bryant MD - Last Filed: 07/04/16 14:42> Objective - Vital Signs/Intake and Output Vital Signs (last 24 hours): Temp Pulse Resp BP Pulse Ox 98.2 F 85 20 161/97 H 92 L 07/04/16 08:25 07/04/16 08:25 07/04/16 08:25 07/04/16 09:05 07/04/16 08:25 - Medications Medications: Current Medications Docusate Sodium (Colace) 100 mg PO DAILY [facility] Last Admin: 07/04/16 09:05 Dose: 100 mg Hydromorphone HCl (Dilaudid) 0.5 mg IVP Q3H PRN PRN Reason: Pain, moderate (4-7) Hydromorphone HCl (Dilaudid) 1 mg IVP Q3H PRN PRN Reason: Pain, severe (8-10) Last Admin: 07/04/16 09:06 Dose: 1 mg Doxycycline Hyclate 100 mg/ (Sodium Chloride) 100 mls @ 100 mls/hr IVPB Q12 [facility] PRN Reason: Protocol Last Admin: 07/04/16 10:11 Dose: 100 mls/hr Ceftriaxone Sodium (Rocephin 1 Gram Ivpb) 1 gm in 100 mls @ 100 mls/hr IVPB DAILY [facility] PRN Reason: Protocol Last Admin: 07/04/16 09:06 Dose: 100 mls/hr Ibuprofen (Motrin Tab) 600 mg PO Q6H [facility] Last Admin: 07/04/16 12:15 Dose: 600 mg Metoprolol Tartrate (Lopressor) 25 mg PO DAILY [facility] Last Admin: 07/04/16 09:05 Dose: 25 mg Nicotine (Nicoderm Cq) 1 patch TD DAILY [facility] Last Admin: 07/04/16 09:05 Dose: 1 patch Ondansetron HCl (Zofran Inj) 4 mg IVP Q4H PRN PRN Reason: Nausea/Vomiting Pantoprazole Sodium (Protonix Ec Tab) 40 mg PO ACB [facility] Last Admin: 07/04/16 08:17 Dose: 40 mg - Labs Labs: 07/04/16 07:00 07/04/16 07:00 PT 12.0 Seconds (9.9-11.8) H 07/02/16 22:46 INR 1.11 (0.93-1.08) H 07/02/16 22:46 APTT 29.2 Seconds (23.7-30.8) 07/02/16 22:46 Attending/Attestation - Attestation I have personally seen and examined this patient.: Yes I have fully participated in the care of the patient.: Yes I have reviewed all pertinent clinical information, including history, physical exam and plan: Yes Notes (Text): 07/04/16 14:40 Patient was seen and examined with medical assistant secretary .Agreed with resident assessment and plan. 56 year old male with PMH of HTN, S/P right knee surgery, obesity with BMI 38, was admitted with pain and swelling of his right scrotum, has right edpidydmitis/Orchitis on Rocephin and Doxycycline as per ID.Urine culture are growing gram negative moises.One blood cultures bottle is growing gram positive cocci in cluster, repeat blood cultures has been drawn, we will follow up cultures. ordered, Management plan was discussed in detail with patient Education was provided.
[2016-07-04 16:32] VITALS: O2SAT 96
--- NOTE | 2016-07-04 19:28 | CP.PCM.PN ---
Subjective - Date & Time of Evaluation Date of Evaluation: 07/04/16 Time of Evaluation: 13:05 - Subjective Subjective: Feeling better, less pain in the scrotal area, no penile discharge, no fevers overnight. Objective - Vital Signs/Intake and Output Vital Signs (last 24 hours): Temp Pulse Resp BP Pulse Ox 98 F 76 20 142/78 96 07/04/16 16:31 07/04/16 16:31 07/04/16 16:31 07/04/16 18:00 07/04/16 16:31 Intake and Output: 07/04/16 07/05/16 18:59 06:59 Intake Total 600 Balance 600 - Medications Medications: Current Medications Docusate Sodium (Colace) 100 mg PO DAILY [facility] Last Admin: 07/04/16 09:05 Dose: 100 mg Hydralazine HCl (Apresoline) 10 mg IVP Q6 PRN PRN Reason: Systolic Blood Pressure Last Admin: 07/04/16 17:04 Dose: 10 mg Hydromorphone HCl (Dilaudid) 0.5 mg IVP Q3H PRN PRN Reason: Pain, moderate (4-7) Hydromorphone HCl (Dilaudid) 1 mg IVP Q3H PRN PRN Reason: Pain, severe (8-10) Last Admin: 07/04/16 17:15 Dose: 1 mg Doxycycline Hyclate 100 mg/ (Sodium Chloride) 100 mls @ 100 mls/hr IVPB Q12 [facility] PRN Reason: Protocol Last Admin: 07/04/16 10:11 Dose: 100 mls/hr Ceftriaxone Sodium (Rocephin 1 Gram Ivpb) 1 gm in 100 mls @ 100 mls/hr IVPB DAILY [facility] PRN Reason: Protocol Last Admin: 07/04/16 09:06 Dose: 100 mls/hr Ibuprofen (Motrin Tab) 600 mg PO Q6H [facility] Last Admin: 07/04/16 18:19 Dose: 600 mg Metoprolol Tartrate (Lopressor) 25 mg PO BID [facility] Nicotine (Nicoderm Cq) 1 patch TD DAILY [facility] Last Admin: 07/04/16 09:05 Dose: 1 patch Ondansetron HCl (Zofran Inj) 4 mg IVP Q4H PRN PRN Reason: Nausea/Vomiting Pantoprazole Sodium (Protonix Ec Tab) 40 mg PO ACB [facility] Last Admin: 07/04/16 08:17 Dose: 40 mg - Labs Labs: 07/04/16 07:00 07/04/16 07:00 PT 12.0 Seconds (9.9-11.8) H 07/02/16 22:46 INR 1.11 (0.93-1.08) H 07/02/16 22:46 APTT 29.2 Seconds (23.7-30.8) 07/02/16 22:46 - Constitutional Appears: Non-toxic, No Acute Distress - Head Exam Head Exam: NORMAL INSPECTION - ENT Exam ENT Exam: Mucous Membranes Moist - Neck Exam Neck Exam: absent: Lymphadenopathy, Meningismus - Respiratory Exam Respiratory Exam: Decreased Breath Sounds - Cardiovascular Exam Cardiovascular Exam: +S1, +S2 - GI/Abdominal Exam GI & Abdominal Exam: Soft. absent: Tenderness - Exam Exam: Scrotal Swelling (right side decreased, less tenderness, no discharge) Assessment and Plan - Assessment and Plan (Free Text) Plan: Assessment Sepsis due to right epididymo-orchitis R/O sexually transmitted illness, slowly improving clinically coagulase negative staph in one blood cx bottle, R/O contamination HTN S/P right knee surgery obesity with BMI 38 Plan continue Rocephin and Doxycycline pending blood cx, penile discharge/urine cx, urine NAAT for gonorrhea and chlamydia follow up repeat blood cx done today Will continue to monitor clinically
[2016-07-05 07:30] LABS: ADD MANUAL DIFF? NO
[2016-07-05 07:35] LABS: BASO # 0.02 K/mm3 (0.0-2.0); BASO % 0.2 % (0.0-3.0); EOS % 0.5 % (1.5-5.0); GRAN # 6.33 (1.4-6.5); GRAN % 78.1 % (50.0-68.0); HEMATOCRIT 45.2 % (42.0-52.0); LYMPH # 1.1 (1.2-3.4); LYMPH % 13.5 % (22.0-35.0); MEAN CELL VOLUME 88.3 fL (80.0-105.0); MEAN CORPUSCULAR HGB CONC 36.3 g/dl (31.0-37.0); MEAN PLATELET VOLUME 9.8 fl (7.0-11.0); MONO # 0.6 (0.1-0.6); MONO % 7.7 % (1.0-6.0); PLATELET COUNT 180 10^3/uL (120.0-450.0); RED CELL DISTRIBUTION WIDTH 12.6 % (11.5-14.5); WHITE BLOOD COUNT 8.1 10^3/ul (4.5-11.0)
[2016-07-05 07:49] LABS: BLOOD UREA NITROGEN 17 mg/dL (7-21); CALCIUM 9.2 mg/dL (8.4-10.5); CARBON DIOXIDE 26 mmol/L (21-33); CHLORIDE 104 mmol/L (95-110); GFR AFRICAN-AMERICAN > 60; GLUCOSE,RANDOM 103 mg/dL (70-110); POTASSIUM 3.2 mmol/L (3.6-5.0); SODIUM 141 mmol/L (132-148)
[2016-07-05] MEDS ORDERED: Potassium Chloride 20 mEq ER Tab PO ONE (07:59)
[2016-07-05 08:45] VITALS: PULSE 72; TEMP 98.8
[2016-07-05] MEDS: Pantoprazole 40 mg EC Tab PO SCH (09:53)
[2016-07-05] MEDS: cefTRIAXone 1 gm 1 GM/100 ML BAG IVPB SCH (09:54)
--- NOTE | 2016-07-05 15:03 | CP.PCM.PN ---
Subjective - Date & Time of Evaluation Date of Evaluation: 07/05/16 Time of Evaluation: 11:40 - Subjective Subjective: Comfortable in bed, less pain in the right scrotum, no fevers, no nausea or diarrhea, no penile discharge. Objective - Vital Signs/Intake and Output Vital Signs (last 24 hours): Temp Pulse Resp BP Pulse Ox 98.8 F 72 20 148/67 96 07/05/16 08:42 07/05/16 08:42 07/05/16 08:42 07/05/16 09:53 07/05/16 08:42 Intake and Output: 07/05/16 07/05/16 06:59 18:59 Output Total 540 Balance -540 - Medications Medications: Current Medications Docusate Sodium (Colace) 100 mg PO DAILY [facility] Last Admin: 07/05/16 09:53 Dose: 100 mg Hydralazine HCl (Apresoline) 10 mg IVP Q6 PRN PRN Reason: Systolic Blood Pressure Last Admin: 07/04/16 17:04 Dose: 10 mg Hydromorphone HCl (Dilaudid) 0.5 mg IVP Q3H PRN PRN Reason: Pain, moderate (4-7) Hydromorphone HCl (Dilaudid) 1 mg IVP Q3H PRN PRN Reason: Pain, severe (8-10) Last Admin: 07/04/16 21:28 Dose: 1 mg Doxycycline Hyclate 100 mg/ (Sodium Chloride) 100 mls @ 100 mls/hr IVPB Q12 [facility] PRN Reason: Protocol Last Admin: 07/05/16 09:55 Dose: 100 mls/hr Ceftriaxone Sodium (Rocephin 1 Gram Ivpb) 1 gm in 100 mls @ 100 mls/hr IVPB DAILY [facility] PRN Reason: Protocol Last Admin: 07/05/16 09:54 Dose: 100 mls/hr Ibuprofen (Motrin Tab) 600 mg PO Q6H [facility] Last Admin: 07/05/16 06:00 Dose: 600 mg Metoprolol Tartrate (Lopressor) 25 mg PO BID [facility] Last Admin: 07/05/16 09:53 Dose: 25 mg Nicotine (Nicoderm Cq) 1 patch TD DAILY [facility] Last Admin: 07/05/16 09:54 Dose: 1 patch Ondansetron HCl (Zofran Inj) 4 mg IVP Q4H PRN PRN Reason: Nausea/Vomiting Pantoprazole Sodium (Protonix Ec Tab) 40 mg PO ACB [facility] Last Admin: 07/05/16 09:53 Dose: 40 mg - Labs Labs: 07/05/16 07:00 07/05/16 07:00 PT 12.0 Seconds (9.9-11.8) H 07/02/16 22:46 INR 1.11 (0.93-1.08) H 07/02/16 22:46 APTT 29.2 Seconds (23.7-30.8) 07/02/16 22:46 - Constitutional Appears: Non-toxic, No Acute Distress - Head Exam Head Exam: NORMAL INSPECTION - ENT Exam ENT Exam: Mucous Membranes Moist - Neck Exam Neck Exam: absent: Lymphadenopathy, Meningismus - Respiratory Exam Respiratory Exam: Decreased Breath Sounds - Cardiovascular Exam Cardiovascular Exam: +S1, +S2 - GI/Abdominal Exam GI & Abdominal Exam: Soft. absent: Tenderness - Exam Exam: Scrotal Swelling (on the right decreased, less tenderness as well) Assessment and Plan - Assessment and Plan (Free Text) Plan: Assessment Sepsis due to right epididymo-orchitis R/O sexually transmitted illness, improving clinically, growing E. coli from the urine coagulase negative staph in one blood cx bottle, most likely contamination HTN S/P right knee surgery obesity with BMI 38 Plan on Rocephin and Doxycycline day 3; follow up urine NAAT for gonorrhea and chlamydia; patient can complete 7 days of Augmentin and complete the 7 day course of Doxycycline on discharge repeat blood cx done yesterday are negative
[2016-07-05 17:14] VITALS: BP 163/93
--- NOTE | 2016-07-06 08:57 | CP.PCM.DIS ---
<Luis Hickey - Last Filed: 07/06/16 17:24> Provider - Provider Date of Admission: 07/03/16 02:09 Attending physician: Denita Burgess MD Consults: ID: Faith Urology: Roxanne Time Spent in preparation of Discharge (in minutes): 45 Hospital Course - Lab Results Lab Results: Micro Results 07/04/16 13:00 Blood Blood Culture - Preliminary NO GROWTH AFTER 24 HOURS 07/04/16 12:40 Blood Blood Culture - Preliminary NO GROWTH AFTER 24 HOURS Most Recent Lab Values WBC 8.1 10^3/ul (4.5-11.0) D 07/05/16 07:00 RBC 5.12 10^6/uL (3.5-6.1) 07/05/16 07:00 Hgb 16.4 gm/dL (14.0-18.0) 07/05/16 07:00 Hct 45.2 % (42.0-52.0) 07/05/16 07:00 MCV 88.3 fL (80.0-105.0) 07/05/16 07:00 MCH 32.0 pg (25.0-35.0) 07/05/16 07:00 MCHC 36.3 g/dl (31.0-37.0) 07/05/16 07:00 RDW 12.6 % (11.5-14.5) 07/05/16 07:00 Plt Count 180 10^3/uL (120.0-450.0) 07/05/16 07:00 MPV 9.8 fl (7.0-11.0) 07/05/16 07:00 Gran % 78.1 % (50.0-68.0) H 07/05/16 07:00 Lymph % (Auto) 13.5 % (22.0-35.0) L 07/05/16 07:00 [place] % (Auto) 7.7 % (1.0-6.0) H 07/05/16 07:00 Eos % (Auto) 0.5 % (1.5-5.0) L 07/05/16 07:00 Baso % (Auto) 0.2 % (0.0-3.0) 07/05/16 07:00 Gran # 6.33 (1.4-6.5) 07/05/16 07:00 Lymph # 1.1 (1.2-3.4) L 07/05/16 07:00 [place] # 0.6 (0.1-0.6) 07/05/16 07:00 Eos # 0.0 (0.0-0.7) 07/05/16 07:00 Baso # 0.02 K/mm3 (0.0-2.0) 07/05/16 07:00 PT 12.0 Seconds (9.9-11.8) H 07/02/16 22:46 INR 1.11 (0.93-1.08) H 07/02/16 22:46 APTT 29.2 Seconds (23.7-30.8) 07/02/16 22:46 pO2 75 mm/Hg (30-55) H 07/02/16 23:30 VBG pH 7.42 (7.32-7.43) 07/02/16 23:30 VBG pCO2 45.0 (40-60) 07/02/16 23:30 VBG HCO3 29.2 mmol/l (21-28) H 07/02/16 23:30 VBG Total CO2 30.6 mmol.L (22-28) H 07/02/16 23:30 VBG O2 Sat (Calc) 97.6 % (40-65) H 07/02/16 23:30 VBG Base Excess 4.0 mmol/L (0.0-2.0) H 07/02/16 23:30 VBG Potassium 3.3 mmol/L (3.6-5.2) L 07/02/16 23:30 Sodium 136.0 mmol/L (132-148) 07/02/16 23:30 Chloride 104.0 mmol/L (98-107) 07/02/16 23:30 Glucose 126 mg/dl (75-110) H 07/02/16 23:30 Lactate 0.9 mmol/L (0.7-2.1) 07/02/16 23:30 FiO2 21.0 % 07/02/16 23:30 Sodium 141 mmol/L (132-148) 07/05/16 07:00 Potassium 3.2 mmol/L (3.6-5.0) L 07/05/16 07:00 Chloride 104 mmol/L (95-110) 07/05/16 07:00 Carbon Dioxide 26 mmol/L (21-33) 07/05/16 07:00 Anion Gap 14 (10-20) 07/05/16 07:00 BUN 17 mg/dL (7-21) 07/05/16 07:00 Creatinine 0.6 mg/dL (0.5-1.4) 07/05/16 07:00 Est GFR ( Amer) > 60 07/05/16 07:00 Est GFR (Non-Af Amer) > 60 07/05/16 07:00 Random Glucose 103 mg/dL (70-110) 07/05/16 07:00 Calcium 9.2 mg/dL (8.4-10.5) 07/05/16 07:00 Phosphorus 2.1 mg/dL (2.5-4.5) L 07/02/16 22:46 Magnesium 1.9 mg/dL (1.7-2.2) 07/02/16 22:46 Total Bilirubin 1.1 mg/dL (0.2-1.3) 07/04/16 07:00 AST 25 U/L (15-59) 07/04/16 07:00 ALT 39 U/L (7-56) 07/04/16 07:00 Alkaline Phosphatase 75 U/L (38-133) 07/04/16 07:00 Total Protein 7.1 g/dL (5.8-8.3) 07/04/16 07:00 Albumin 3.9 g/dL (3.0-4.8) 07/04/16 07:00 Globulin 3.2 gm/dL 07/04/16 07:00 Albumin/Globulin Ratio 1.2 (1.1-1.8) 07/04/16 07:00 Venous Blood Potassium 3.3 mmol/L (3.6-5.2) L 07/02/16 23:30 Urine Color Yellow (YELLOW) 07/03/16 01:19 Urine Appearance Clear (CLEAR) 07/03/16 01:19 Urine pH 7.5 (4.7-8.0) 07/03/16 01:19 Ur Specific [place] 1.010 (1.005-1.035) 07/03/16 01:19 Urine Protein Negative mg/dL (<30 mg/dL) 07/03/16 01:19 Urine Glucose (UA) Negative mg/dL (NEGATIVE) 07/03/16 01:19 Urine Ketones 15 mg/dL (NEGATIVE) H 07/03/16 01:19 Urine Blood Negative (NEGATIVE) 07/03/16 01:19 Urine Nitrate Positive (NEGATIVE) H 07/03/16 01:19 Urine Bilirubin Negative (NEGATIVE) 07/03/16 01:19 Urine Urobilinogen 4.0 E.U./dL (<1 E.U./dL) H 07/03/16 01:19 Ur Leukocyte Esterase Negative [place]/uL (NEGATIVE) 07/03/16 01:19 Urine RBC 0 - 2 /hpf (0-2) 07/03/16 01:19 Urine WBC 0 - 2 /hpf (0-6) 07/03/16 01:19 Ur Epithelial Cells 1 - 3 /hpf (0-5) 07/03/16 01:19 Urine Bacteria Many (NEG) 07/03/16 01:19 RPR Nonreactive (NONREACTIVE) 07/03/16 07:45 C.trachomatis RNA (TMA) Not detected (Not Detected) 07/03/16 02:40 HIV 1&2 Ag/Ab, 4th Gen Nonreactive (Nonreactive) 07/03/16 14:00 N.gonorrhoeae RNA (TMA) Not detected (Not Detected) 07/03/16 02:40 - Hospital Course Hospital Course: Upon Admission: 56yo M with PMHx of HTN here for evaluation of right scrotal pain. Pain started 3 days prior to arrival and slowly became worse, erythematous and edematous. Testicular ultrasound suspicious for Right Epididymoorchitis, Moderate Right hydrocele, small left hydrocele, and possible right scrotal cellulitis; no torsion. Patient was started on antibiotics and cultures were sent which grew pansensitive E.Coli. Urology consult was obtained and the patient was asked to elevate scrotal sac and continue antibiotics. ID consult was obtained. Over the course of the hospital stay, patient's pain and swelling improved moderately. Patient was deemed stable for discharge on oral pain meds, antibiotics and close out-patient follow up. Patient understands and agrees with plan. 1. Right Epididymoorchitis; Augmentin, Doxycycline. Motrin for pain control 2. Hx of HTN; continue home meds Upon Discharge: Patient is cleared for discharge as per Dr. Burgess 1. Follow up with Dr. Oliveira within one week. Call for appointment 2. Follow up with your Primary care physician within 1 week 3. Take antibiotics as prescribed to completion 4. Resume home meds 5. Return to the ER with any concerning symptoms New Prescriptions Motrin 800mg PO q6h prn pain #15/0 Doxycycline 100mg PO BID #10/0 Augmentin 875mg PO BID #14/0 Discharge Exam - Head Exam Head Exam: ATRAUMATIC, NORMAL INSPECTION, NORMOCEPHALIC - Eye Exam Eye Exam: EOMI, Normal appearance. absent: Scleral icterus Pupil Exam: PERRL - ENT Exam ENT Exam: Mucous Membranes Moist - Respiratory Exam Respiratory Exam: Clear to PA & Lateral, NORMAL BREATHING PATTERN. absent: Accessory Muscle Use, Decreased Breath Sounds, Respiratory Distress - Cardiovascular Exam Cardiovascular Exam: RRR, +S1, +S2 - GI/Abdominal Exam GI & Abdominal Exam: Soft, Unremarkable. absent: Distended, Firm, Guarding - Exam Additional comments: scrotal edema, erythema. Mild improvement compared to previous day. Decreased tenderness to palpation - Neurological Exam Neurological exam: Alert, Normal Gait, Oriented x3 - Psychiatric Exam Psychiatric exam: Normal Affect, Normal Mood - Skin Skin Exam: Dry, Erythema, Intact, Warm Discharge Plan - Discharge Medications Prescriptions: Amoxicillin/Clavulanate [Augmentin 875 MG-125 MG] 1 tab PO BID #14 tab Doxycycline Hyclate [Doryx] 100 mg PO BID #10 cap Ibuprofen [Motrin Tab] 600 mg PO Q6H PRN #15 tab PRN Reason: Pain, Moderate (4-7) - Follow Up Plan Condition: STABLE Disposition: HOME/ ROUTINE Instructions: Cellulitis (DC), Cellulitis (GEN) Additional Instructions: Patient is cleared for discharge as per Dr. Burgess 1. Follow up with Dr. Oliveira within one week. Call for appointment 2. Follow up with your Primary care physician within 1 week 3. Take antibiotics as prescribed to completion 4. Resume home meds 5. Return to the ER with any concerning symptoms New Prescriptions Motrin 800mg PO q6h prn pain #15/0 Doxycycline 100mg PO BID #10/0 Augmentin 875mg PO BID #14/0 Referrals: Liborio Oliveira MD [Staff Provider] - <Denita Burgess - Last Filed: 07/06/16 17:48> Provider - Provider Date of Admission: 07/03/16 02:09 Attending physician: Denita Burgess MD Hospital Course - Lab Results Lab Results: Micro Results 07/04/16 13:00 Blood Blood Culture - Preliminary NO GROWTH AFTER 48 HOURS 07/04/16 12:40 Blood Blood Culture - Preliminary NO GROWTH AFTER 48 HOURS Most Recent Lab Values WBC 8.1 10^3/ul (4.5-11.0) D 07/05/16 07:00 RBC 5.12 10^6/uL (3.5-6.1) 07/05/16 07:00 Hgb 16.4 gm/dL (14.0-18.0) 07/05/16 07:00 Hct 45.2 % (42.0-52.0) 07/05/16 07:00 MCV 88.3 fL (80.0-105.0) 07/05/16 07:00 MCH 32.0 pg (25.0-35.0) 07/05/16 07:00 MCHC 36.3 g/dl (31.0-37.0) 07/05/16 07:00 RDW 12.6 % (11.5-14.5) 07/05/16 07:00 Plt Count 180 10^3/uL (120.0-450.0) 07/05/16 07:00 MPV 9.8 fl (7.0-11.0) 07/05/16 07:00 Gran % 78.1 % (50.0-68.0) H 07/05/16 07:00 Lymph % (Auto) 13.5 % (22.0-35.0) L 07/05/16 07:00 [place] % (Auto) 7.7 % (1.0-6.0) H 07/05/16 07:00 Eos % (Auto) 0.5 % (1.5-5.0) L 07/05/16 07:00 Baso % (Auto) 0.2 % (0.0-3.0) 07/05/16 07:00 Gran # 6.33 (1.4-6.5) 07/05/16 07:00 Lymph # 1.1 (1.2-3.4) L 07/05/16 07:00 [place] # 0.6 (0.1-0.6) 07/05/16 07:00 Eos # 0.0 (0.0-0.7) 07/05/16 07:00 Baso # 0.02 K/mm3 (0.0-2.0) 07/05/16 07:00 PT 12.0 Seconds (9.9-11.8) H 07/02/16 22:46 INR 1.11 (0.93-1.08) H 07/02/16 22:46 APTT 29.2 Seconds (23.7-30.8) 07/02/16 22:46 pO2 75 mm/Hg (30-55) H 07/02/16 23:30 VBG pH 7.42 (7.32-7.43) 07/02/16 23:30 VBG pCO2 45.0 (40-60) 07/02/16 23:30 VBG HCO3 29.2 mmol/l (21-28) H 07/02/16 23:30 VBG Total CO2 30.6 mmol.L (22-28) H 07/02/16 23:30 VBG O2 Sat (Calc) 97.6 % (40-65) H 07/02/16 23:30 VBG Base Excess 4.0 mmol/L (0.0-2.0) H 07/02/16 23:30 VBG Potassium 3.3 mmol/L (3.6-5.2) L 07/02/16 23:30 Sodium 136.0 mmol/L (132-148) 07/02/16 23:30 Chloride 104.0 mmol/L (98-107) 07/02/16 23:30 Glucose 126 mg/dl (75-110) H 07/02/16 23:30 Lactate 0.9 mmol/L (0.7-2.1) 07/02/16 23:30 FiO2 21.0 % 07/02/16 23:30 Sodium 141 mmol/L (132-148) 07/05/16 07:00 Potassium 3.2 mmol/L (3.6-5.0) L 07/05/16 07:00 Chloride 104 mmol/L (95-110) 07/05/16 07:00 Carbon Dioxide 26 mmol/L (21-33) 07/05/16 07:00 Anion Gap 14 (10-20) 07/05/16 07:00 BUN 17 mg/dL (7-21) 07/05/16 07:00 Creatinine 0.6 mg/dL (0.5-1.4) 07/05/16 07:00 Est GFR ( Amer) > 60 07/05/16 07:00 Est GFR (Non-Af Amer) > 60 07/05/16 07:00 Random Glucose 103 mg/dL (70-110) 07/05/16 07:00 Calcium 9.2 mg/dL (8.4-10.5) 07/05/16 07:00 Phosphorus 2.1 mg/dL (2.5-4.5) L 07/02/16 22:46 Magnesium 1.9 mg/dL (1.7-2.2) 07/02/16 22:46 Total Bilirubin 1.1 mg/dL (0.2-1.3) 07/04/16 07:00 AST 25 U/L (15-59) 07/04/16 07:00 ALT 39 U/L (7-56) 07/04/16 07:00 Alkaline Phosphatase 75 U/L (38-133) 07/04/16 07:00 Total Protein 7.1 g/dL (5.8-8.3) 07/04/16 07:00 Albumin 3.9 g/dL (3.0-4.8) 07/04/16 07:00 Globulin 3.2 gm/dL 07/04/16 07:00 Albumin/Globulin Ratio 1.2 (1.1-1.8) 07/04/16 07:00 Venous Blood Potassium 3.3 mmol/L (3.6-5.2) L 07/02/16 23:30 Urine Color Yellow (YELLOW) 07/03/16 01:19 Urine Appearance Clear (CLEAR) 07/03/16 01:19 Urine pH 7.5 (4.7-8.0) 07/03/16 01:19 Ur Specific [place] 1.010 (1.005-1.035) 07/03/16 01:19 Urine Protein Negative mg/dL (<30 mg/dL) 07/03/16 01:19 Urine Glucose (UA) Negative mg/dL (NEGATIVE) 07/03/16 01:19 Urine Ketones 15 mg/dL (NEGATIVE) H 07/03/16 01:19 Urine Blood Negative (NEGATIVE) 07/03/16 01:19 Urine Nitrate Positive (NEGATIVE) H 07/03/16 01:19 Urine Bilirubin Negative (NEGATIVE) 07/03/16 01:19 Urine Urobilinogen 4.0 E.U./dL (<1 E.U./dL) H 07/03/16 01:19 Ur Leukocyte Esterase Negative [place]/uL (NEGATIVE) 07/03/16 01:19 Urine RBC 0 - 2 /hpf (0-2) 07/03/16 01:19 Urine WBC 0 - 2 /hpf (0-6) 07/03/16 01:19 Ur Epithelial Cells 1 - 3 /hpf (0-5) 07/03/16 01:19 Urine Bacteria Many (NEG) 07/03/16 01:19 RPR Nonreactive (NONREACTIVE) 07/03/16 07:45 C.trachomatis RNA (TMA) Not detected (Not Detected) 07/03/16 02:40 HIV 1&2 Ag/Ab, 4th Gen Nonreactive (Nonreactive) 07/03/16 14:00 N.gonorrhoeae RNA (TMA) Not detected (Not Detected) 07/03/16 02:40 Attending/Attestation - Attestation I have personally seen and examined this patient.: Yes I have fully participated in the care of the patient.: Yes I have reviewed all pertinent clinical information, including history, physical exam and plan: Yes Notes (Text): 07/05/16 56 year old male with past medical history of hypertension who presented with complaint of scrotal erythema, pain and swelling. He was found to have epipidymytis/orchitis and E coli UTI. He was seen by urology and ID and started on iv antibiotics. His symptoms improved. He was hypertensive while in hospital and his medications were adjusted with improved of his blood pressure. Patient is discharged home to follow up with his pmd. Follow up with urology. Continue with po antibiotics as prescribed. Denita Burgess MD Hospitalist.
== END 2016-07-05 18:09 | disposition home or self-care (01) ==
LOC: ED 22:27 → ERH 07-03 02:09 → 3RSO 07-03 03:42
PROVIDERS: ADMIT Internal Medicine; ATTEND Internal Medicine
DX: A41.9 Sepsis, unspecified organism (principal); N39.0 Urinary tract infection, site not specified; B96.20 Unspecified Escherichia coli [E. coli] as the cause of diseases classified elsewhere; N45.3 Epididymo-orchitis; I10 Essential (primary) hypertension; F17.210 Nicotine dependence, cigarettes, uncomplicated; E66.9 Obesity, unspecified; Z68.38 Body mass index [BMI] 38.0-38.9, adult; N43.3 Hydrocele, unspecified; N49.2 Inflammatory disorders of scrotum; N50.89 Other specified disorders of the male genital organs
CPT/HCPCS: 36415; 71010; 74177; 80048; 80053; 81001; 82803; 83735; 84100; 85025; 85027; 85610; 85730; 86592; 87040; 87086; 87149; 87181; 87491; 87591; 93005; 93975; 96365; 96366; 96367; 96375; 96376; 99285; C9113; G0378; J0360; J0696; J1170; J2270; J2543; J7040; Q9967

== ENCOUNTER 2018-03-26 11:05 | Inpatient (IN) | payer MEDICARE ==
[2018-03-26] MEDS: Albuterol-Ipratrop 3 mg / 0.5 (3 ml) UD IH SCH ×3 (11:15→11:43)
[2018-03-26 11:22] VITALS: BMI 43.3
--- NOTE | 2018-03-26 11:22 | ED PDOC ---
Arrival/HPI - General Chief Complaint: Shortness Of Breath Time Seen by Provider: 03/26/18 11:05 Historian: Patient - History of Present Illness Narrative History of Present Illness (Text): 03/26/18 11:21 57 year old male smoker, with past medical history of hypertension, presents to emergency department complaining of shortness of breath and cough since last night. Patient reports using nitro and lasix prior to arrival and CPAP was initiated. Patient denies any fevers, chills, headache, dizziness, chest pain, abdominal pain, nausea, vomiting, diarrhea, back pain, neck pain, or any other complaints. History limited due to patient's respiratory status. Time/Duration: Other (last night) Symptom Onset: Gradual Symptom Course: Unchanged Activities at Onset: Light Context: Home Past Medical History - Provider Review Nursing Documentation Reviewed: Yes - Infectious Disease Hx of Infectious Diseases: None - Cardiac Hx Hypertension: Yes - Pulmonary Other/Comment: Smoker - Musculoskeletal/Rheumatological Hx Falls: No - Psychiatric Hx Substance Use: No - Surgical History Hx Orthopedic Surgery: Yes (knee surgery) - Anesthesia Hx Anesthesia: Yes Hx Anesthesia Reactions: No Hx Malignant Hyperthermia: No Family/Social History - Physician Review Nursing Documentation Reviewed: Yes Family/Social History: Unknown Family HX Smoking Status: Heavy Smoker > 10 Cigarettes Daily Hx Alcohol Use: No Hx Substance Use: No Allergies/Home Meds Allergies/Adverse Reactions: Allergies No Known Allergies Allergy (Verified 03/26/18 11:10) Review of Systems - Physician Review All systems were reviewed & negative as marked: Yes - Review of Systems Constitutional: absent: Fevers Respiratory: SOB, Cough Cardiovascular: absent: Chest Pain Gastrointestinal: absent: Abdominal Pain Genitourinary Male: absent: Frequency, Hematuria, Urinary Output Changes Musculoskeletal: absent: Back Pain, Neck Pain Skin: absent: Rash Neurological: absent: Headache, Dizziness Physical Exam Vital Signs Reviewed: Yes Temperature: Afebrile Blood Pressure: Normal Pulse: Regular Respiratory Rate: Tachypneic Appearance: Positive for: Well-Appearing, Non-Toxic, Comfortable Pain Distress: None Mental Status: Positive for: Alert and Oriented X 3 - Systems Exam Head: Present: Atraumatic, Normocephalic Pupils: Present: PERRL Extroacular Muscles: Present: EOMI Conjunctiva: Present: Normal Mouth: Present: Moist Mucous Membranes Neck: Present: Normal Range of Motion Respiratory/Chest: Present: Clear to Auscultation, Good Air Exchange, Rales (at bases), Rhonchi (bilateral ), Tachypneic, Other (CPAP, hypoxia ). No: Respiratory Distress, Accessory Muscle Use Cardiovascular: No: Murmurs Abdomen: No: Tenderness, Distention, Peritoneal Signs Back: Present: Normal Inspection Upper Extremity: Present: Normal Inspection. No: Cyanosis, Edema Lower Extremity: Present: Normal Inspection. No: Edema Neurological: Present: GCS=15, CN II-XII Intact, Speech Normal Skin: Present: Warm, Dry, Normal Color. No: Rashes Psychiatric: Present: Alert, Oriented x 3, Normal Insight, Normal Concentration Medical Decision Making ED Course and Treatment: 03/26/18 11:37 Impression: c57 year old male presents to emergency department complaining of shortness of breath and cough since last night. long standing smoker- neb steriods, ro chf copd pna pe acs Plan: -- EKG -- Labs -- Chest X-ray -- Duoneb -- Solu-Medrol -- Urinalysis -- Reassess and disposition Prior Visits: Notes and results from previous visits were reviewed. Progress Notes: 03/26/18 18:[address] francois bedside, accepts case. sat well tolerating bipap cta neg 03/27/18 16:04 - RAD Interpretation Narrative RAD Interpretations (Text): 03/26/18 15:03 CT Chest, reviewed by radiologist: IMPRESSION: Unremarkable CT pulmonary angiogram. No pulmonary embolus. Chest X-ray, reviewed by radiologist: IMPRESSION: Vascular congestion with mild perihilar infiltrates Radiology Orders: 03/26/18 11:09 CHEST PORTABLE [RAD] Stat [employer] Consultant: Radiologist - EKG Interpretation EKG Interpretation (Text): 03/26/18 11:44 EKG: Ordered, reviewed, and independently interpreted the EKG. Rate : 116 BPM Rhythm : NSR Interpretation : No ST-segment elevations or depressions, no T-wave changes, sinus tachycardia Interpreted by ED Physician: Yes Type: 12 lead EKG - Medication Orders Current Medication Orders: Albuterol/Ipratropium (Duoneb 3 Mg/0.5 Mg (3 Ml) Ud) 3 ml IH Q15M GARRETT Stop: 03/26/18 11:46 Discontinued Medications Methylprednisolone (Solu-Medrol) 125 mg IVP STAT STA Stop: 02/10/19 11:11 - Scribe Statement The provider has reviewed the documentation as recorded by the Scribe Butch Rolle All medical record entries made by the Scribe were at my direction and personally dictated by me. I have reviewed the chart and agree that the record accurately reflects my personal performance of the history, physical exam, medical decision making, and the department course for this patient. I have also personally directed, reviewed, and agree with the discharge instructions and disposition. Disposition/Present on Arrival - Present on Arrival Any Indicators Present on Arrival: No History of DVT/PE: No History of Uncontrolled Diabetes: No Urinary Catheter: No History of Decub. Ulcer: No History Surgical Site Infection Following: None - Disposition Have Diagnosis and Disposition been Completed?: Yes Diagnosis: COPD (chronic obstructive pulmonary disease) Disposition: HOSPITALIZED Disposition Time: 12:00 Condition: FAIR
[2018-03-26 11:26] LABS: VENOUS BLOOD GAS BASE EXCESS 2.6 mmol/L (0.0-2.0); VENOUS BLOOD GAS PO2 63 mm/Hg (30-55); VENOUS BLOOD PH 7.43 (7.32-7.43)
[2018-03-26 11:34] LABS: ALB/GLOB RATIO 1.5 (1.1-1.8); ALBUMIN 4.8 g/dL (3.0-4.8); ALT/SGPT 33 U/L (7-56); AST/SGOT 46 U/L (17-59); BLOOD UREA NITROGEN 9 mg/dL (7-21); CALCIUM 9.2 mg/dL (8.4-10.5); GFR NON-AFRICAN AMERICAN > 60
[2018-03-26 11:47] LABS: BASO # 0.02 K/mm3 (0.0-2.0); BASO % 0.2 % (0.0-3.0); EOS % 0.2 % (1.5-5.0); HEMOGLOBIN 16.8 g/dL (14.0-18.0); LYMPH % 9.7 % (22.0-35.0); MEAN CELL VOLUME 92.7 fl (80.0-105.0); MEAN CORPUSCULAR HEMOGLOBIN 32.2 pg (25.0-35.0); MEAN CORPUSCULAR HGB CONC 34.7 g/dl (31.0-37.0); MEAN PLATELET VOLUME 9.8 fl (7.0-11.0); MONO # 0.6 (0.1-0.6); MONO % 6.5 % (1.0-6.0); RBC 5.22 10^6/uL (3.5-6.1); RED CELL DISTRIBUTION WIDTH 13.1 % (11.5-14.5); WHITE BLOOD COUNT 9.9 10^3/uL (4.5-11.0)
[2018-03-26 11:48] LABS: B-TYPE NATRIURETIC PEPTIDE 183 pg/mL (0-450); TROPONIN I < 0.01 ng/mL
[2018-03-26 11:51] LABS: CK-MB 2.9 ng/mL (0.0-3.6)
[2018-03-26 11:53] LABS: INR 1.12; PARTIAL THROMBOPLASTIN TIME 34.3 Seconds (26.9-38.3); PROTHROMBIN TIME 12.6 SECONDS (9.4-12.5)
--- NOTE | 2018-03-26 12:19 | RAD ---
Date of service: 03/26/2018 HISTORY: sob COMPARISON: 07/02/2016 FINDINGS: LUNGS: Vascular congestion with mild perihilar infiltrates PLEURA: No significant pleural effusion identified, no pneumothorax apparent. CARDIOVASCULAR: No aortic atherosclerotic calcification present. Normal cardiac size. OSSEOUS STRUCTURES: No significant abnormalities. VISUALIZED UPPER ABDOMEN: Normal. OTHER FINDINGS: None. IMPRESSION: Vascular congestion with mild perihilar infiltrates
[2018-03-26] MEDS ORDERED: levoFLOXacin 750 mg in D5W 750 MG/150 ML BAG IVPB STA (12:20)
--- NOTE | 2018-03-26 13:53 | CT ---
Date of service: 03/26/2018 PROCEDURE: CT Chest with contrast (Pulmonary Angiogram) HISTORY: sob COMPARISON: None available. TECHNIQUE: Axial computed tomography images were obtained of the chest in the pulmonary arterial phase of enhancement. Coronal and sagittal reformatted images were created and reviewed. Intravenous contrast dose: Radiation dose: Total exam DLP = 529.71 mGy-cm. This CT exam was performed using one or more of the following dose reduction techniques: Automated exposure control, adjustment of the mA and/or kV according to patient size, and/or use of iterative reconstruction technique. FINDINGS: PULMONARY ARTERIES: Unremarkable. No pulmonary embolism. AORTA: No acute findings. No thoracic aortic aneurysm. Mild aortic calcification LUNGS: Unremarkable. No nodule, mass or pulmonary consolidation. There is some linear atelectasis at the left lung base PLEURAL SPACES: Unremarkable. No effusion or pneumothorax. HEART: Unremarkable. No cardiomegaly. No significant pericardial effusion. LYMPH NODES: No lymphadenopathy. BONES, CHEST WALL: Unremarkable. No fracture or destructive lesion OTHER FINDINGS: Unremarkable. IMPRESSION: Unremarkable CT pulmonary angiogram. No pulmonary embolus.
[2018-03-26 15:26] LABS: URINE BILIRUBIN NEGATIVE (NEGATIVE); URINE BLOOD TRACE-LYSED (NEGATIVE); URINE GLUCOSE (UA) NEGATIVE (NEGATIVE); URINE LEUKOCYTE ESTERASE NEGATIVE Leu/uL (NEGATIVE); URINE PROTEIN NEGATIVE mg/dL (<30 mg/dL); URINE UROBILINOGEN 0.2 E.U./dL (<1 E.U./dL)
[2018-03-26 15:27] LABS: URINE APPEARANCE CLEAR (CLEAR); URINE COLOR YELLOW (YELLOW)
[2018-03-26] MEDS: Enoxaparin 40 mg Syringe SC SCH (15:27)
[2018-03-26] MEDS: Sodium Chloride 0.45% 1,000 ML IV SCH (15:28)
[2018-03-26 15:46] LABS: URINE WBC 0 - 2 /hpf (0-6)
[2018-03-26 18:55] LABS: ARTERIAL BLOOD GAS HCO3 28.5 mmol/L (21-28); ARTERIAL BLOOD GAS HEMOGLOBIN 16.7 g/dL (11.7-17.4); ARTERIAL BLOOD GAS O2 CONTENT 22.8 ML/dl (15-23); ARTERIAL BLOOD GAS O2 SAT 99.2 % (95-98); ARTERIAL BLOOD GAS PCO2 47 mm/Hg (35-45); ARTERIAL BLOOD GAS PH 7.39 (7.35-7.45); ARTERIAL BLOOD GAS TCO2 29.9 mmol.L (22-28)
[2018-03-26] MEDS: MethylPREDNISolone 40 mg Vial IV SCH ×2 (18:57→23:12)
[2018-03-26] MEDS ORDERED: Arformoterol 15 mcg/2 ml Inh Sol IH SCH (20:00)
--- NOTE | 2018-03-26 20:43 | CARD ---
APPROVED REPORT Date of service: 03/26/2018 EKG Measurement Heart [id number] <Conclusion> Sinus tachycardia Minor NDSTT abnormalities- probably rate related Otherwise normal ECG
[2018-03-26] MEDS: Arformoterol 15 mcg/2 ml Inh Sol IH SCH (20:52)
[2018-03-26] MEDS: Budesonide 0.5 mg/2 ml Inhal Susp UD IH SCH (20:52)
--- NOTE | 2018-03-26 22:42 | HP ---
DATE OF EXAM: 03/26/2018 CHIEF COMPLAINT: A 57-year-old male, who came in with acute short of breath. HISTORY OF PRESENT ILLNESS: This is a 57-year-old obese male with hypertension, came in complaining of short of breath since last night. The patient came in by ambulance. We gave him Nitro, Lasix, and was put in CPAP and was having respiratory distress. Denied any fever, headache, chills or any chest pain or any abdominal pain, nausea, vomiting, or diarrhea. No other complaints. No back pain. No acute pain. PAST MEDICAL HISTORY: As above. He does have history of hypertension, morbid obesity. He does have history of knee surgery in the past, otherwise negative. ALLERGY: NO KNOWN ALLERGY. HOME MEDICATIONS: He does take medications metoprolol 25 mg b.i.d., ibuprofen 600 every 6 hours p.r.n., doxycycline 100 b.i.d., and Augmentin b.i.d. FAMILY HISTORY: Noncontributory. SOCIAL HISTORY: He is a heavy smoker more than 10 cigarettes a day. No alcohol. No drugs. REVIEW OF SYSTEMS: Negative except knee arthritis, back arthritis, using ibuprofen for it. The patient, I could not get much history from him because of his BiPAP machine and respiratory distress. PHYSICAL EXAMINATION GENERAL: The patient has BiPAP machine. VITAL SIGNS: His temperature 97.9, his heart rate 91, blood pressure 134/82, respirations 22, and sat 99%. HEAD AND NECK: Normal. No JVD. No thyromegaly. CHEST: Diminished breath sounds bilaterally. CARDIAC: First sound and second sound normal. ABDOMEN: Soft, obese, and nontender. EXTREMITIES: No edema. NEUROLOGIC: Normal. LABORATORY DATA: White count 9, hemoglobin 16.8, hematocrit 48.4, and platelets 163. Chemistry; sodium 138, potassium 4, chloride 103, bicarb 27, BUN 9, creatinine 0.7. Blood sugar 130. Liver functions test is normal. His total CK 461. The patient's blood gas shows pO2 is 63, which is low, pH 7.43 normal, and bicarb 27.2, and venous pCO2 41.0. PT/PTT is normal. Serology, pneumonia type 1 and B is negative. Urine was negative, 1 to 3 red blood cells, otherwise no white cells and is negative. Chest x-ray and CT chest for PE was negative and there is no lung pneumonia on a lung exam on CT chest and lung, negative for pneumonia and negative for PE. IMPRESSION AND PLAN: We will admit the patient with acute respiratory distress, hypoxemia. We will consider chronic obstructive pulmonary disease exacerbations. We will give the patient intravenous steroids, intravenous antibiotics, nebulizer treatment, BiPAP machine. We will get pulmonary consult with Dr. Muller. We will put the patient on deep venous thrombosis prophylaxis and gastrointestinal prophylaxis. We will give him intravenous fluids and will monitor the patient on telemetry floor. We will also get cardiac enzymes, troponin, and we are going to get Cardiology consult with Dr. Mcgregor. Continue current therapy for now. We will resume his metoprolol and we will resume other medications. Lenard Adkins MD
[2018-03-27] MEDS: MethylPREDNISolone 40 mg Vial IV SCH ×4 (05:36→23:31)
[2018-03-27] MEDS: Sodium Chloride 0.45% 1,000 ML IV SCH ×2 (05:37→23:31)
[2018-03-27] MEDS: Budesonide 0.5 mg/2 ml Inhal Susp UD IH SCH ×2 (07:14→20:17)
[2018-03-27] MEDS: Arformoterol 15 mcg/2 ml Inh Sol IH SCH ×2 (07:14→20:16)
[2018-03-27 07:30] LABS: TROPONIN I < 0.01 ng/mL
[2018-03-27 07:31] LABS: ALB/GLOB RATIO 1.5 (1.1-1.8); ALBUMIN 4.4 g/dL (3.0-4.8); ALT/SGPT 35 U/L (7-56); AST/SGOT 41 U/L (17-59); BLOOD UREA NITROGEN 17 mg/dL (7-21); CALCIUM 9.2 mg/dL (8.4-10.5); GFR NON-AFRICAN AMERICAN > 60
[2018-03-27] MEDS ORDERED: Enoxaparin 40 mg Syringe SC SCH (10:00)
[2018-03-27] MEDS: Enoxaparin 40 mg Syringe SC SCH (10:13)
[2018-03-27] MEDS: cefTRIAXone 1 gm 1 GM/100 ML BAG IVPB SCH (10:14)
--- NOTE | 2018-03-27 13:34 | CP.PCM.PCO ---
Physician Communication Note - Physician Communication Note Physician Communication Note: continue antibiotics, solumedrol, cardiology consulted, PT jim pend.
--- NOTE | 2018-03-27 15:13 | CON ---
DATE: 03/27/2018 PULMONARY CONSULTATION NOTE REFERRING PHYSICIAN: Lenard Adkins MD REASON FOR CONSULT: Shortness of breath, cough and suspected sleep apnea syndrome. HISTORY OF PRESENT ILLNESS: This is a 57-year-old male who came to emergency room complaining of shortness of breath and cough. The patient was brought in by the ambulance. He was given nitro and Lasix. He was placed on a CPAP machine for respiratory distress. At this time, the patient reports feeling much better. No headache, rhinitis, chest pain, abdominal pain, nausea, vomiting, diarrhea, leg pain or leg swelling reported. The patient does have some cough and shortness of breath at times. PAST MEDICAL HISTORY: Hypertension, morbid obesity, smoker, history of knee surgery. ALLERGIES: NO KNOWN ALLERGIES. FAMILY HISTORY: No cardiopulmonary disease reported. SOCIAL HISTORY: Current smoker. The patient reports smoking for 40 years, atleast 1 pack per day, states that he recently decreased to couple of cigarettes a day. No ETOH abuse. No illicit drug use. REVIEW OF SYSTEMS: No headache, rhinitis, chest pain, abdominal pain, nausea, vomiting, diarrhea, leg pain, or leg swelling reported. Reports still having shortness of breath with exertion and some coughing. PHYSICAL EXAMINATION VITAL SIGNS: Blood pressure 137/86, pulse 89, temperature 97.9 and oxygen saturation 96%. GENERAL: No acute distress. HEENT: Moist mucous membranes. Small oral cavity. Mallampati score of 4. Edentulous. RESPIRATORY: Bilateral wheeze, rhonchi bilaterally. CARDIAC: S1 and S2. ABDOMEN: Obese, soft and nontender. EXTREMITIES: No bilateral lower extremities edema. NEUROLOGIC: Awake, alert and verbal. Follows commands. MEDICATION: Reviewed. Mucomyst 4 mL inhalation twice a day, Brovana 15 mcg every 12 hours, Pulmicort 0.5 mg twice a day, Rocephin 1 g daily, doxycycline 100 mg every 12 hours, Lovenox 40 mg daily, Lisinopril 5 mg daily, Solu-Medrol 40 mg every 6 hours, metoprolol tartrate 25 mg twice a day, Tamiflu 75 mg twice a day, Protonix 40 mg daily and sodium chloride 0.45% a 1000 mL at 70 mL per hour. LABORATORY DATA: Reviewed. WBC 9.9, RBC 5.22, hemoglobin 16.8, hematocrit 48.4 and platelets 163. PT 12.6, INR 1.12 and APTT 34.3. PCO2 of 47, PO2 of 127, HCO3 of 28.9 and ABG pH 7.39 on FiO2 90. Sodium 139, potassium 3.8, chloride 103, carbon dioxide 27, anion gap 13, BUN 17, creatinine 0.7, GFR greater than 60, random glucose 149, calcium 9.2, total bilirubin 0.6, AST 41, ALT 35, alkaline phosphatase 70, troponin less than 0.01, proBNP 183, total protein 7.5, albumin 4.4, globulin 3.0 and albumin-globulin ratio 1.5. Urinalysis shows urine blood trace, urine RBC 1 to 3. Influenza type A and B negative. Blood cultures preliminary no growth after 24 hours. Urine culture negative no growth. Chest x-ray shows vascular congestion with mild perihilar infiltrate. Electrocardiogram shows sinus tachycardia. Chest CT showed unremarkable CT pulmonary angiogram, no pulmonary embolism. There is some linear atelectasis at the left lung base and mild aortic calcification. IMPRESSION AND PLAN: Chronic obstructive pulmonary disease exacerbation, suspected sleep apnea syndrome, suspected hypoventilation syndrome, need to rule out cardiac reasons, agreed with getting echocardiogram. We will order procalcitonin level. Continue bilevel positive airway pressure use at bedtime. We will order chest physiotherapy for patient. Continue antibiotic therapy, steroids, gastric prophylaxis, deep venous thrombosis prophylaxis, sleep apnea precautions and head of bed elevated at 45 degrees. Spoke with the patient regarding smoking cessation and starting nicotine patch, the patient refused nicotine patch at this time. Continue inhaled bronchodilators. This patient was seen and examined with Dr. Muller. Discussed assessment and plan as described above. This patient was seen and examined with Arnie Middleton, Nurse Practitioner. Discussed assessment and plan as described above. Thank you for this consult. We will follow with you. Arnie Middleton APN Tunde Muller MD
[2018-03-27] MEDS ORDERED: Acetylcysteine 20% Inhal Sol (30ml) IH SCH (18:00)
[2018-03-27 18:29] LABS: HEMOGLOBIN 16.3 g/dL (14.0-18.0); MEAN CELL VOLUME 93.1 fl (80.0-105.0); MEAN CORPUSCULAR HGB CONC 34.4 g/dl (31.0-37.0); MEAN PLATELET VOLUME 9.7 fl (7.0-11.0); RBC 5.09 10^6/uL (3.5-6.1); RED CELL DISTRIBUTION WIDTH 13.3 % (11.5-14.5); WHITE BLOOD COUNT 11.7 10^3/uL (4.5-11.0)
[2018-03-27] MEDS: Acetylcysteine 20% Inhal Soln (4ml) IH SCH (20:16)
--- NOTE | 2018-03-27 20:56 | CON ---
DATE: 03/27/2018 REASON FOR CONSULTATION AND FOLLOWUP: Cardiac evaluation, admitted with shortness of breath. BRIEF CLINICAL HISTORY: This is a 56-year-old male with history of hypertension, active tobacco abuse, history of COPD, came in with complaints of cough with some phlegm and shortness of breath for 2 days. Denies any chest pain. Denies any palpitation. Denies any episode of shortness of breath prior to this event. PAST MEDICAL HISTORY: Significant for hypertension, morbid obesity, questionable history of COPD. PAST SURGICAL HISTORY: History of significant for torn ligament of the right knee, status post surgery. ALLERGIES: NO KNOWN DRUG ALLERGIES. SOCIAL HISTORY: Heavy smoker before 1-2 pack for couple of years, now he cut down to 10 and did not smoke since the patient is here. No history of alcohol abuse. No history of substance abuse. CURRENT MEDICATIONS: The patient at home is taking metoprolol 25 mg p.o. b.i.d., Ibuprofen p.r.n., doxycycline and Augmentin. FAMILY HISTORY: Noncontributory. REVIEW OF SYSTEMS: As per HPI. PHYSICAL EXAMINATION: VITAL SIGNS: Height of the patient 5 feet 8 inches, weight of the patient 275 pounds, body mass index 41.8 kg/m2. Rest of the vitals, temperature afebrile, heart rate 89 and blood pressure 137/86. HEENT: PERRLA. Extraocular muscles intact. NECK: Supple. No carotid bruits or thyromegaly. CHEST: Clear to auscultation. HEART: S1 and S2 regular. ABDOMEN: Soft. EXTREMITIES: Clubbing and cyanosis, negative. LABORATORY DATA: Blood workup as follows; WBC 9.9, hemoglobin 16.8, hematocrit 48.4 and platelet count 163. INR 1.12. Chemistry shows sodium 139, potassium 3.8, chloride 103, carbon dioxide 27, anion gap of 13, BUN 17 and creatinine 0.7. Troponin 0.01 negative. EKG shows sinus tachycardia, otherwise within normal limits. IMPRESSION: A 57-year-old morbidly obese male with body mass index of 43 kg/m2, history of diabetes, hypertension, chronic obstructive pulmonary disease, active tobacco abuse, admitted with the shortness of breath and acute exacerbation of chronic obstructive pulmonary disease. Given the multiple incident of coronary artery disease, suggested stress test also echo to assist in mitral regurgitation, tricuspid regurgitation, pulmonary hypertension. PLAN: We will get lipid profile, TSH, and hemoglobin A1c. We will get echo to assist in LV function and pulmonary hypertension and mild tricuspid regurgitation also we will get stress Thallium tomorrow to rule out ischemia. In between, we will get lipid profile with hemoglobin A1c. Complete cessation smoking. Complete abstinent from alcohol. Complete cessation of smoking is recommended. We will with you. In time, we will start baby aspirin continue control of blood pressure and DVT prophylaxis and we will start low doses of beta-dorene because the patient is baseline sinus tachycardic. We will follow with you. To treat aggressively with COPD, we will add ANDREW-inhibitor as well as beta-dorene and n.p.o. after midnight for stress test in the morning. Further recommendations stress test. Thank you Dr. Adkins for providing us the opportunity in taking care of the patient, Eze Gay. Tunde Mcgregor MD
--- NOTE | 2018-03-27 21:46 | PN ---
DATE: 03/27/2018 SUBJECTIVE: The patient is feeling better than before, still short of breath, still coughing and wheezing. No chest pain. No other complaints. PHYSICAL EXAMINATION: VITAL SIGNS: Temperature 98.4, heart rate 78, blood pressure 136/86, respirations 18, and saturation 96% on BiPAP. HEENT: Head and neck normal. No JVD. No thyromegaly. CHEST: Bilateral wheezing basal rhonchi. CARDIAC: First sound and second sound normal. ABDOMEN: Soft, obese, and nontender. EXTREMITIES: No edema. NEUROLOGIC: Normal. LABORATORY DATA: Shows 11.7 white count, hemoglobin 16.3, hematocrit 47.4, and platelets 168. Chemistry; sodium 139, potassium 3.8, chloride 103, bicarb 27, BUN 17, creatinine 0.7, and blood sugar 149. Liver functions test is normal. Troponin is negative. IMPRESSION AND PLAN: 1. Acute chronic obstructive pulmonary disease exacerbation. Continue IV steroid, continue inhaled bronchodilators, continue Rocephin, doxycycline, and we will add also Tamiflu. Continue current therapy. We will follow up clinically. 2. Possibly obstructive sleep apnea and morbid obesity. The patient needs to do sleep study as outpatient. 3. Hypertension. Continue hydralazine 10 mg q.i.d. p.r.n. We will add also Mucomyst. Continue current therapy. Gastrointestinal and deep venous thrombosis prophylaxes has been . Continue Zestril 5 mg p.o. daily. Lenard Adkins MD
[2018-03-28] MEDS: MethylPREDNISolone 40 mg Vial IV SCH ×3 (06:04→21:57)
[2018-03-28 07:02] LABS: HEMOGLOBIN 15.8 g/dL (14.0-18.0); LYMPH # 0.7 (1.2-3.4); LYMPH % 6.5 % (22.0-35.0); MEAN CELL VOLUME 93.4 fl (80.0-105.0); MEAN CORPUSCULAR HEMOGLOBIN 31.7 pg (25.0-35.0); MEAN CORPUSCULAR HGB CONC 33.9 g/dl (31.0-37.0); MONO # 0.6 (0.1-0.6); MONO % 5.4 % (1.0-6.0); RBC 4.99 10^6/uL (3.5-6.1); RED CELL DISTRIBUTION WIDTH 13.5 % (11.5-14.5); WHITE BLOOD COUNT 11.2 10^3/uL (4.5-11.0)
[2018-03-28 07:03] LABS: ALB/GLOB RATIO 1.3 (1.1-1.8); ALT/SGPT 40 U/L (7-56); AST/SGOT 37 U/L (17-59); BLOOD UREA NITROGEN 23 mg/dL (7-21); GFR NON-AFRICAN AMERICAN > 60; HDL CHOLESTEROL 41 mg/dL (29-60)
[2018-03-28] MEDS ORDERED: Aminophylline 25 mg/ml Inj ONE (07:09)
[2018-03-28 07:11] LABS: LDL CHOLESTEROL 109 mg/dL (0-129)
[2018-03-28] MEDS: Budesonide 0.5 mg/2 ml Inhal Susp UD IH SCH ×2 (07:15→21:29)
[2018-03-28] MEDS: Acetylcysteine 20% Inhal Soln (4ml) IH SCH ×2 (07:15→21:29)
[2018-03-28] MEDS: Arformoterol 15 mcg/2 ml Inh Sol IH SCH ×2 (07:15→21:29)
--- NOTE | 2018-03-28 08:30 | CP.PCM.PN ---
Subjective - Date & Time of Evaluation Date of Evaluation: 03/28/18 Time of Evaluation: 06:45 - Subjective Subjective: Awake, alert ,no distress Reason for consultation and follow up:Cardiac evaluation of shortness of breath, history of hypertnesion, COPD, active tobacco abuse Seen and examined by me and Dr. Mcgregor Objective - Vital Signs/Intake and Output Vital Signs (last 24 hours): Temp Pulse Resp BP Pulse Ox 98.3 F 76 20 138/84 95 03/28/18 06:00 03/28/18 06:00 03/28/18 06:00 03/28/18 06:00 03/28/18 06:00 Intake and Output: 03/28/18 03/28/18 06:59 18:59 Intake Total 1240 Output Total 1400 Balance -160 - Medications Medications: Current Medications Acetylcysteine (Acetylcysteine 20%) 4 ml IH BIDRESP [facility]TT Last Admin: 03/28/18 07:15 Dose: 4 ml Arformoterol Tartrate (Brovana) 15 mcg IH [id number] GARRE[facility] Last Admin: 03/28/18 07:15 Dose: 15 mcg Budesonide (Pulmicort Respules) 0.5 mg IH BIDRESP GARRETT Last Admin: 03/28/18 07:15 Dose: 0.5 mg Enoxaparin Sodium (Lovenox) 40 mg SC DAILY G[facility]RE[facility]; Protocol Last Admin: 03/27/18 10:13 Dose: 40 mg Hydralazine HCl (Apresoline) 10 mg PO QID PRN PRN Reason: FOR sbp>160 Doxycycline Hyclate 100 mg/ (Sodium Chloride) 100 mls @ 100 mls/hr IVPB Q12 [facility]; Protocol Last Admin: 03/27/18 23:32 Dose: 100 mls/hr Ceftriaxone Sodium (Rocephin 1 Gram Ivpb) 1 gm in 100 mls @ 100 mls/hr IVPB DAILY [facility]; Protocol Last Admin: 03/27/18 10:14 Dose: 100 mls/hr Sodium Chloride (Sodium Chloride 0.45%) 1,000 mls @ 70 mls/hr IV .[id number] GARRETT Last Admin: 03/27/18 23:31 Dose: 70 mls/hr Lisinopril (Zestril) 5 mg PO DAILY [facility] Last Admin: 03/27/18 18:04 Dose: 5 mg Methylprednisolone (Solu-Medrol) 40 mg IV Q6 [facility] Last Admin: 03/28/18 06:04 Dose: 40 mg Metoprolol Tartrate (Lopressor) 25 mg PO BID [facility] Last Admin: 03/27/18 18:06 Dose: 25 mg Oseltamivir Phosphate (Tamiflu Cap) 75 mg PO BID [facility]; Protocol Stop: 04/01/18 12:53 Last Admin: 03/27/18 18:06 Dose: 75 mg Pantoprazole Sodium (Protonix Inj) 40 mg IVP DAILY [facility] Last Admin: 03/27/18 10:13 Dose: 40 mg - Labs Labs: 03/28/18 06:40 03/28/18 06:40 PT 12.6 SECONDS (9.4-12.5) H 03/26/18 11:10 INR 1.12 03/26/18 11:10 APTT 34.3 Seconds (26.9-38.3) 03/26/18 11:10 - Constitutional Appears: Non-toxic, No Acute Distress - Head Exam Head Exam: NORMAL INSPECTION, NORMOCEPHALIC - Eye Exam Eye Exam: Normal appearance Pupil Exam: NORMAL ACCOMODATION - ENT Exam ENT Exam: Mucous Membranes Moist, Normal Exam - Respiratory Exam Respiratory Exam: Decreased Breath Sounds, NORMAL BREATHING PATTERN - Cardiovascular Exam Cardiovascular Exam: REGULAR RHYTHM, +S1, +S2 - GI/Abdominal Exam GI & Abdominal Exam: Soft, Normal Bowel Sounds - Extremities Exam Extremities Exam: Full ROM, Normal Capillary Refill - Neurological Exam Neurological Exam: Alert, Awake, Oriented x3 - Psychiatric Exam Psychiatric exam: Normal Affect, Normal Mood - Skin Skin Exam: Dry, Normal Color, Warm Assessment and Plan - Assessment and Plan (Free Text) Assessment: A 57 year old male who came in to the ER due to shortness of breath. History of COPD, diabetes, hypertension,active tobacco abuse smokes 1PPD for 40 years, morbidly obese. Admitted for exacerbation of COPD. Denies chest pain. For stress test and echo today. Plan: Denies chest pain Blood pressure controlled Heart rate controlled For stress test today For echo today On PRN Hydralazine, Lisinopril 5 mg daily, Solumedrol 40 mg daily, Lopressor 25 mg BID, Tamiflu 75 mg BID Continue current treatment Lifestyle modification Weight reduction Smoking cessation Nicoderm patch Will follow up Plan and treatment discussed with Dr. Mcgregor
[2018-03-28] MEDS: Enoxaparin 40 mg Syringe SC SCH (11:04)
[2018-03-28] MEDS: cefTRIAXone 1 gm 1 GM/100 ML BAG IVPB SCH (11:05)
[2018-03-28] MEDS: Sodium Chloride 0.45% 1,000 ML IV SCH (11:12)
--- NOTE | 2018-03-28 11:31 | PN ---
DATE: 03/28/2018 PULMONARY PROGRESS NOTE REFERRING PHYSICIAN: Lenard Adkins MD SUBJECTIVE: The patient is seen lying in bed. The patient has stress test today. The patient reports wearing CPAP machine last night for two and half hours. States that he does have cough which is productive. Reports feeling well this morning. No headache, rhinitis, chest pain, abdominal pain, shortness of breath, nausea, vomiting, diarrhea, leg pain, leg swelling reported. OBJECTIVE: VITAL SIGNS: Blood pressure 138/84, pulse 67, temperature 98.3 and oxygen saturation 95 on nasal cannula. GENERAL: No acute distress. HEENT: Moist mucous membranes. Small oral cavity. Mallampati score of 4. Edentulous. RESPIRATORY: Rhonchi bilaterally. Wheezing audible bilateral. CARDIAC: S1 and S2. ABDOMEN: Obese, soft and nontender. EXTREMITIES: No bilateral lower extremities edema. NEUROLOGIC: Awake, alert and verbal. Follows commands. MEDICATIONS: Reviewed. Mucomyst 4 mL inhalation twice a day, Brovana 15 mcg every 12 hours, Pulmicort 0.5 mg inhalation twice a day, Rocephin 1 g daily, doxycycline 100 mg every 12 hours, Lovenox 40 mg subcu daily, Hydralazine 10 mg 4 times a day p.r.n., lisinopril 5 mg daily, Solu-Medrol 40 mg every 6 hours, metoprolol tartrate 25 mg twice a day, nicotine patch transdermally daily, Tamiflu 75 mg twice a day, Protonix 40 mg daily and sodium chloride 0.45% a 1000 mL at 70 mL per hour. LABORATORY DATA: Reviewed. WBC 11.2, RBC 4.99, hemoglobin 15.8, hematocrit 46.6 and platelets 154. Sodium 139, potassium 4.5, chloride 105, carbon dioxide 31, anion gap 7, BUN 23, creatinine 0.8, GFR greater than 60, random glucose 141, calcium 9, phosphorus 3.6, magnesium 2.4. Total bilirubin 0.4, AST 37, ALT 40, alkaline phosphatase 60, total protein 6.9, albumin 4, globulin 3.9 and albumin-globulin ratio 1.3. Triglycerides 82, cholesterol 171, LDL cholesterol 109, HDL cholesterol 41. TSH 0.04. Blood cultures preliminary no growth after 24 hours. Sputum cultures show few epithelial cell, moderate polymorphonuclear wbc, moderate gram positive cocci, culture is pending. IMPRESSION AND PLAN: Chronic obstructive pulmonary disease exacerbation, suspected sleep apnea syndrome, suspected hypoventilation syndrome, cardiac workup in progress. Stress test done today. Procalcitonin drawn this morning. We will review when available. Continue to encourage bilevel positive airway pressure use at bedtime. Continue chest physiotherapy, antibiotic therapy. We will decrease Solu-Medrol to 40 mg every 8 hours. Gastric prophylaxis, deep venous thrombosis prophylaxis, sleep apnea precautions and head of bed elevated at 45 degrees. Continue smoking cessation. Continue inhaled bronchodilators. This patient was seen and examined with Dr. Muller. Discussed assessment and plan as described above. This patient was seen and examined with Arnie Middleton, nurse practitioner. Discussed assessment and plan as described above. Thank you for this consult. We will follow with you. Arnie Middleton APN Tunde Muller MD
--- NOTE | 2018-03-28 12:38 | CP.PCM.PCO ---
Physician Communication Note - Physician Communication Note Physician Communication Note: stress test/echo results pending, PT eval, antibiotics, solumedrol, Tamiflu
--- NOTE | 2018-03-28 15:48 | CARD ---
APPROVED REPORT Date of service: 03/28/2018 Protocol: LEXISCAN Test Type: Lexiscan Sestamibi Stress Test Attending Physician: Dr. Tunde Vazquez Referring Physician: Dr. Lenard Adkins Test Indications: Chest Pain Height:5 ft 8 in Weight:275lbs Medications: mucomyst, brovana, rocephin doxycycline, lovenox, hydralazine lisinopril, solu-medrol, lopressor protonix Medical History: 57 year old male with h/o htn and knee surgery Target HR: 161 bpm Resting ECG: RSR. Resting Heart Rate: 71 bpm Resting Blood Pressure: 140/86mmHg Submaximum (85%): 137 bpm PROCEDURE Pharmacologic stress testing was performed using 0.4mg per 5ml of regadenoson given intravenously over 7-10 seconds. POST EXERCISE Reason for Termination: Protocol completed Target HR: No Max HR: 60 bpm 55% of Maximum Predicted HR: 161 bpm Exercise duration: 00:31 min:sec, 0 Stage Exercise capacity: 1.0METs Max Blood Pressure: 140/86mmHg Blood Pressure response to exercise: normal resting BP - appropriate response Heart Rate response to exercise: appropriate Chest Pain: No, none Angina index: 0 Arrhythmia: No, none ST Change: No, none Deviation: 0 mm INTERPRETATION Stress EKG Conclusion: IV LEXISCAN NUCLEAR STRESS TEST NEGATIVEFOR CHEST PAIN AND NEGATIVE FOR ST-T CHANGES. NUCLEAR SCAN REPORT PENDING. Signed by Tunde Vazquez Electronically Approved: 03/28/2018 12:20:59 EXAM: Myocardial Perfusion REST/STRESS Stress Test Type: Pharmacologic Imaging Protocol The imaging protocol used to acquire images was Rest Tc-99m/stress Tc-99m 1 day Rest Spect myocardial perfusion imaging was performed in supine position 50 minutes following the injection of 10.3 mCi of Tc-99 Myoview. At peak stress, the patient was injected intravenously with 30.9mCi of Tc-99 tetrofosmin after an infusion time of 0 minutes and 10 seconds. Gated Stress Spect was performed 65 minutes after intravenous Tc-99 Myoview injection. The images were gated to evaluate regional wall motion and calculate ventricular ejection fraction.Images were reconstructed using backfilter projection method in short horizontal and verticle long axis. Spect slices were generated. LV Perfusion The quality of the study is good. The left ventricle is mildly enlarged in size with thickened myocardium. The right ventricle is unremarkable. The lung uptake is normal. The distribution of tracer reveals moderately and diffusely decreased perfusion in the inferior wall on the stress study. The remainder of the LV myocardium is unremarkable. The rest myocardial perfusion study shows no significant change. Wall Motion Wall motion study shows good contractility of the left ventricle. LVEF = 56%. Conclusion 1. Essentially normal SPECT myocardial perfusion study. 2. Fixed, inferior defect is most likely due to diaphrgmatic attenuation. 3. Normal gated wall motion and thicknening of the left ventricle.
--- NOTE | 2018-03-28 20:47 | PN ---
DATE: 03/28/2018 SUBJECTIVE: A 57-year-old male came in with shortness of breath, found to have COPD exacerbation. The patient seems better today with short of breath, less wheezing. Has no chest pain. No other complaints. PHYSICAL EXAMINATION: VITAL SIGNS: Today, temperature 98, heart rate 92, blood pressure 132/83, respirations 18, and saturation 95% on 3 L nasal canula. HEAD AND NECK: Normal. No JVD. No thyromegaly. CHEST: There is improvement in air entry bilateral. Few rhonchi. CARDIAC: First sound and second sound normal. ABDOMEN: Soft, obese, and nontender. EXTREMITIES: No edema. NEUROLOGIC: Normal. LABORATORY STUDIES: White count 11.2, hemoglobin 15.8, hematocrit 46.6, and platelets 154. Chemistry: Sodium 139, potassium 4.5, chloride 105, bicarb 21, BUN 23, and creatinine 0.8. Liver functions test is normal. Magnesium 2.4. ALT, AST, and alkaline phosphatase are normal. IMPRESSION AND PLAN: 1. Acute chronic obstructive pulmonary disease exacerbation. Continue intravenous steroid. Continue inhaled bronchodilators, Mucomyst, chest physical therapy. Continue Rocephin and doxycycline. 2. Hypertension. The patient already started on lisinopril 5 mg and hydralazine as needed. 3. Morbid obesity, possible obstructive sleep apnea. The patient needs to do sleep study as outpatient. 4. Smoker. He is on current NicoDerm patch. We will continue that. Continue current therapy. CURRENT MEDICATIONS: Mucomyst, hydralazine p.r.n., Brovana, doxycycline, Lopressor 25 mg b.i.d., Lovenox, NicoDerm, Protonix, Pulmicort, Rocephin, Solu-Medrol, Tamiflu, and Zestril. Lenard Adkins MD
[2018-03-29] MEDS: MethylPREDNISolone 40 mg Vial IV SCH (05:27)
[2018-03-29 05:45] VITALS: PULSE 61; O2SAT 99
[2018-03-29] MEDS: Acetylcysteine 20% Inhal Soln (4ml) IH SCH (07:20)
[2018-03-29] MEDS: Budesonide 0.5 mg/2 ml Inhal Susp UD IH SCH (07:20)
[2018-03-29] MEDS: Arformoterol 15 mcg/2 ml Inh Sol IH SCH (07:20)
[2018-03-29] MEDS ORDERED: Pantoprazole 40 mg EC Tab PO SCH (07:30)
[2018-03-29] MEDS: Enoxaparin 40 mg Syringe SC SCH (09:04)
[2018-03-29] MEDS: cefTRIAXone 1 gm 1 GM/100 ML BAG IVPB SCH (09:09)
[2018-03-29 12:16] VITALS: BP 122/78; RESP 18; TEMP 98
--- NOTE | 2018-03-29 12:17 | PN ---
DATE: 03/29/2018 PULMONARY CONSULT NOTE REFERRING PHYSICIAN: Lenard Adkins MD SUBJECTIVE: The patient is sitting up at bedside. No acute distress. No overnight events reported. The patient reports wearing BiPAP last night. States he has some coughing this morning with sputum production after having nebulizer treatment. No shortness of breath. States he feels better. At this time reports wanting to go home. No headache, rhinitis, chest pain, abdominal pain, nausea, vomiting, diarrhea, leg pain or leg swelling reported. OBJECTIVE: GENERAL: No acute distress. VITAL SIGNS: Blood pressure 122/71, pulse 61, temperature 98.5 and oxygen saturation 99% on BiPAP. HEENT: Moist mucous membranes. Mallampati score of 4. Small oral cavity. Edentulous. RESPIRATORY: Rhonchi bilaterally. Minimal wheezing. CARDIAC: S1 and S2. ABDOMEN: Obese, soft and nontender. EXTREMITIES: No bilateral lower extremities edema. NEUROLOGIC: Awake, alert and verbal. Follows commands. MEDICATIONS: Reviewed. Mucomyst 4 mL inhalation twice a day, Brovana 15 mcg inhalation every 12 hours, aspirin 81 mg daily, Pulmicort 0.5 mg inhalation twice a day, Rocephin 1 g daily, doxycycline 100 mg every 12 hours, Lovenox 40 mg subcutaneously daily, hydralazine 10 mg 4 times a day p.r.n. for systolic BP greater than 160, lisinopril 5 mg daily, Solu-Medrol 40 mg every 8 hours, Lopressor 25 mg twice a day, nicotine patch transdermally daily and Protonix 40 mg in the morning. LABORATORY DATA: Reviewed. No new labs. Blood culture preliminary no growth after 48 hours. Myocardial stress test shows essentially normal SPECT myocardial perfusion study, fixed inferior defect most likely due to diaphragmatic attenuation, normal gated wall motion and thickening of the left ventricle. Echocardiogram report pending. Procalcitonin is less than 0.05. IMPRESSION AND PLAN: Chronic obstructive pulmonary disease exacerbation, suspected sleep apnea syndrome, suspected hypoventilation syndrome, cardiac workup in progress. Echocardiogram report pending. Continue to encourage bilevel positive airway pressure use at bedtime. Sleep apnea precaution, head of bed elevated at 45 degrees, continue chest physiotherapy, antibiotic therapy, continue steroids, gastric prophylaxis, deep venous prophylaxis, sleep apnea precaution. Continue smoking cessation. Continue inhaled bronchodilators. We recommend the patient stay for another day or so, but if the patient is insistent on going home, we recommend the patient go home on Medrol Dosepak. Will need attended sleep study and full pulmonary function as outpatient. This patient was seen and examined with Dr. Muller. Discussed assessment and plan as described above. This patient was seen and examined with Arnie Middleton, nurse practitioner. Discussed assessment and plan as described above. Thank you for this consult and we will follow with you. Arnie Middleton APN Tunde Muller MD
--- NOTE | 2018-03-29 13:49 | PN ---
DATE: 03/29/2018 REASON FOR CONSULTATION AND FOLLOWUP: Cardiac evaluation, admitted with shortness of breath, acute exacerbation of COPD, multiple incidents of coronary artery disease. SUBJECTIVE: The patient denies any chest pain, shortness of breath, or any palpitation. PHYSICAL EXAMINATION: GENERAL: Not in apparent distress. VITAL SIGNS: Temperature afebrile, heart rate ____ and blood pressure 122/71. HEENT: PERRLA. Extraocular muscles intact. NECK: Supple. No carotid bruits or thyromegaly. CHEST: Clear to auscultation. HEART: S1 and S2 regular. ABDOMEN: Soft. EXTREMITIES: Clubbing and cyanosis, negative. LABORATORY DATA: Blood workup as follows: WBC 11.8, hemoglobin 15.8, hematocrit 46.6, platelet count 154. Chemistry shows sodium 139, potassium 4.5, chloride 105, carbon dioxide 31, anion gap of 7, BUN 23 and creatinine 0.8. Stress test, the patient had a stress test yesterday that revealed essential normal myocardial perfusion study, fixed defect, no reversible ischemia, ejection fraction 56%. Echo pending. IMPRESSION: A 57-year-old morbidly obese male with history of diabetes, hypertension, hyperlipidemia, chronic obstructive pulmonary disease, admitted with acute exacerbation of chronic obstructive pulmonary disease. Negative stress test. RECOMMENDATIONS: Continue aggressive treat for COPD. Continue DVT prophylaxis. Continue beta-dorene. Continue aspirin 81 mg daily. Continue lisinopril. DC telemetry. We will review the echo when it is available. Overall, the patient's CVS status is stable. No further cardiac workup is planned at this time after the echo. We will follow with you. Thank you Dr. Adkins for providing us the opportunity in taking care of the patientVictor Hugo. Tunde Mcgregor MD
--- NOTE | 2018-03-29 19:01 | CARD ---
APPROVED REPORT Date of service: 03/28/2018 EXAM: Two-dimensional and M-mode echocardiogram with Doppler and color Doppler. INDICATION Dyspnea LVFX 2D DIMENSIONS Left Atrium (2D)5.1 (1.6-4.0cm)IVSd1.0 (0.7-1.1cm) LVDd5.0 (3.9-5.9cm)PWd1.2 (0.7-1.1cm) LVDs3.6 (2.5-4.0cm)FS (%) 29.1 % LVEF (%)55.8 (>50%) M-Mode DIMENSIONS Aortic Root3.60 (2.2-3.7cm)Aortic Cusp Exc.1.20 (1.5-2.0cm) Aortic Valve AoV Peak Doedtlcl233.0cm/sAoV VTI40.2cmAO Peak GR.16mmHg LVOT Peak Zxynlgje68.6cm/sLVOT VTI21.80cmAO Mean GR.8mmHg Mitral Valve MV E Ohljizzv875.0cm/sMV A Iltqzcax963.0cm/sE/A ratio1.1 TDI Lateral E' Peak V9.75cm/sMedial E' Peak V8.19cm/sE/Lateral E'12.1 E/Medial E'14.4 Pulmonary Valve PV Peak Omrusxoi87.7cm/sPV Peak Grad.2mmHg Tricuspid Valve TR Peak Jkskctkm728yb/sRAP [id number] Peak Gr.9mmHg [id number] LEFT VENTRICLE The left ventricle is normal size. There is borderline concentric left ventricular hypertrophy. The left ventricular function is normal.EF-55% There is normal LV segmental wall motion. Transmitral Doppler flow pattern is Grade III-reversible restrictive diastolic dysfunction. No left ventricle thrombus noted on this study. There is no ventricular septal defect visualized. There is no left ventricular aneurysm. There is no mass noted in the left ventricle. RIGHT VENTRICLE The right ventricle is normal size. There is normal right ventricular wall thickness. The right ventricular systolic function is normal. ATRIA The left atrium is mildly dilated. The right atrium size is normal. The interatrial septum is intact with no evidence for an atrial septal defect. AORTIC VALVE The aortic valve is calcified and displays decreased opening. No aortic regurgitation is present. Aortic Sclerosis VS Mild There is no aortic valvular vegetation. MITRAL VALVE The mitral valve is thickened but opens well. Mitral regurgitation is mild. There is no mitral valve stenosis. There is no evidence of mitral valve prolapse. TRICUSPID VALVE The tricuspid valve leaflets are thickened , but open well. There is trace to mild tricuspid regurgitation.RVSP_19 mmof Hg. There is no tricuspid valve stenosis. There is no tricuspid valve prolapse or vegetation. PULMONIC VALVE The pulmonary valve is normal in structure. There is trace pulmonic valvular regurgitation. There is no pulmonic valvular stenosis. GREAT VESSELS The aortic root is normal in size. The ascending aorta is normal in size. The pulmonary artery is normal. The IVC is normal in size and collapses >50% with inspiration. PERICARDIAL EFFUSION There is no pleural effusion. There is no pericardial effusion. <Conclusion> The left ventricle is normal size. There is borderline concentric left ventricular hypertrophy. The left ventricular function is normal.EF-55% Aortic Sclerosis VS Mild Mitral regurgitation is mild. There is trace to mild tricuspid regurgitation.RVSP_19 mmof Hg. The IVC is normal in size and collapses >50% with inspiration. There is no pericardial effusion.
--- NOTE | 2018-03-30 02:38 | DS ---
HISTORY OF PRESENT ILLNESS: The patient was admitted with acute COPD exacerbation. The patient was given IV steroids, inhaled bronchodilators. He was a smoker, we give him Nicorette patch, BiPAP machine. The patient is morbid obese. Advised about quitting smoking, getting a sleep study ordered. IV antibiotic was given. The patient seems doing well. His breathing was a lot better and will be discharged home today. While he is in the hospital, seen by Pulmonary consult, Dr. Muller. PHYSICAL EXAMINATION: VITAL SIGNS: On discharge, temperature 90, heart rate 61, blood pressure 122/78, respirations 18, saturation 99%. HEAD AND NECK: Normal. No JVD. No thyromegaly. CHEST: Clear bilateral. CARDIAC: First sound and second sound normal ABDOMEN: Obese, nontender. EXTREMITIES: No edema. NEUROLOGIC: Normal. LABORATORY DATA: White count 11.2, hemoglobin 15.8, hematocrit 46.6, platelets 154. Chemistry; sodium 139, potassium 4.5, chloride 105, bicarb 21, BUN 23, creatinine 0.8. Blood sugar 141. Liver function test is normal. Magnesium 2.4. DIAGNOSTIC DATA: Chest x-ray shows no pneumonia. The patient also had Cardiology evaluated him and he had normal myocardial stress test. The patient also had a chest CT, shows no active disease and was negative. He also had Cardiology consult by Dr. Mcgregor and unremarkable CT angio, lung unremarkable, no nodules, linear atelectasis of left lung. DISCHARGE DIAGNOSES: 1. Acute chronic obstructive pulmonary disease exacerbation. 2. Possible obstructive sleep apnea. 3. Morbid obesity. 4. Hypertension. PLAN: Discharge the patient on Medrol Dosepak, Z-Deven, Ventolin two puffs q. i. d., Advair, Nicorette gum, Lopressor 25 mg b.i.d., and lisinopril 5 mg p.o. daily, baby aspirin 81 mg advised to take it on daily basis and also take Pepcid 20 mg p.o. daily. Continue all these meds. Followup in the office within a week. I gave the patient appointment and I gave him my business card to make appointment for a week for further evaluation. Continue current therapy. Lenard Adkins MD
== END 2018-03-29 14:42 | disposition home or self-care (01) | DRG 191 ==
LOC: ED 11:05 → ERH 14:02 → 2RSO 15:50
PROVIDERS: ADMIT Internal Medicine; ATTEND Internal Medicine
PROC: 5A09357 Assistance with Respiratory Ventilation, Less than 24 Consecutive Hours, Continuous Positive Airway Pressure (ICD-10-PCS; principal; 2018-03-26)
PROC: 4A12XM4 Monitoring of Cardiac Stress, External Approach (ICD-10-PCS; 2018-03-28)
PROC: 3E073KZ Introduction of Other Diagnostic Substance into Coronary Artery, Percutaneous Approach (ICD-10-PCS; 2018-03-28)
DX: J44.1 Chronic obstructive pulmonary disease with (acute) exacerbation (principal); Z68.41 Body mass index [BMI] 40.0-44.9, adult; R06.03 Acute respiratory distress; I10 Essential (primary) hypertension; F17.200 Nicotine dependence, unspecified, uncomplicated; R09.02 Hypoxemia; F17.210 Nicotine dependence, cigarettes, uncomplicated; E66.01 Morbid (severe) obesity due to excess calories; E11.9 Type 2 diabetes mellitus without complications; I25.10 Atherosclerotic heart disease of native coronary artery without angina pectoris; Z79.899 Other long term (current) drug therapy; E78.5 Hyperlipidemia, unspecified; M17.10 Unilateral primary osteoarthritis, unspecified knee

== ENCOUNTER 2018-05-08 13:04 | Outpatient (CLI) | payer MEDICARE | END 2018-05-08 13:05 | disposition home or self-care (01) | LOC: LAB 13:04 ==